=== PATIENT | female | born 1955 | race Caucasian/White ===

== ENCOUNTER 2016-08-17 10:28 | Inpatient (IN) | payer OTHER ==
[2016-08-09 13:58] VITALS: BMI 25.0
--- NOTE | 2016-08-09 14:31 | PAT Medication Instructions ---
Service Date Aug 09, 2016. Current Home Medication List Aspirin (Aspirin Ec), 81 MG PO QAM Ibuprofen Tab (Advil), 600 MG PO Q4H PRN for PRN Lisinopril/Hctz (Zestoretic 20MG/25MG), 1 TAB PO QAM Loratadine (Claritin), 10 MG PO PRN Simvastatin (Zocor), 20 MG PO QPM Tapentadol Hcl (Nucynta), 50 MG PO prn Medication Instructions For Your Scheduled Surgery - Hold the following medications 7 days prior to surgery per surgeon's instructions: Aspirin (Aspirin Ec), 81 MG PO QAM Ibuprofen Tab (Advil), 600 MG PO Q4H PRN for PRN - Hold the following medications the morning of surgery: Lisinopril/Hctz (Zestoretic 20MG/25MG), 1 TAB PO QAM Loratadine (Claritin), 10 MG PO PRN - Take the following medications the morning of surgery with a sip of water OTHERWISE NOTHING TO EAT OR DRINK AFTER MIDNIGHT: Tapentadol Hcl (Nucynta), 50 MG PO prn (may take if needed up to 4 hours prior to surgery) - Take the following medications as scheduled the night before surgery: Tapentadol Hcl (Nucynta), 50 MG PO prn Simvastatin (Zocor), 20 MG PO QPM If you have any questions please call us at [phone] or [phone] or [phone]
--- NOTE | 2016-08-09 15:12 | DIAGNOSTIC IMAGING REPORT ---
CHEST 2 VIEWS ROUTINE HISTORY: 52-year-old female presents for preoperative exam. No reported symptomatology. COMPARISON: Chest CT and lumbar spine CT 09/28/2013. TECHNIQUE: Frontal and lateral views of the chest. FINDINGS: The cardiomediastinal and hilar silhouettes are within normal limits. There is no pneumothorax, pleural effusion, focal airspace consolidation or overt pulmonary edema. Multiple remote lateral left rib fractures and remote left scapular body fracture is seen. Additionally, there is remote compression deformity of the L3 vertebral body. IMPRESSION: 1. No acute cardiopulmonary process. 2. Remote lateral left rib and left scapular body fractures. Electronically signed by: Kurt Arreola 08/09/2016 3:10 PM Dictated Date/Time: 08/09/2016 3:07 PM
[2016-08-09 16:10] LABS: URINE APPEARANCE CLEAR (CLEAR); URINE BILIRUBIN NEG (NEG); URINE COLOR YELLOW; URINE NITRITE NEG (NEG); URINE PH 6.5 (4.5-7.5); URINE SPECIFIC GRAVITY 1.014 (1.000-1.030); UROBILINOGEN NEG (NEG)
[2016-08-09 16:10] LABS: BASO % 0.6 %; BASO ABS # 0.03 K/uL (0-0.2); COMPLETE YES; EOS % 1.7 %; HEMATOCRIT 35.7 % (37-47); IG% 0.2 %; LYMPH % 23.3 %; LYMPH ABS # 1.23 K/uL (1.2-3.4); MEAN CELL VOLUME 90.6 fL (80-100); MEAN CORPUSCULAR HEMOGLOBIN 31.2 pg (25-34); MEAN CORPUSCULAR HGB CONC 34.5 g/dl (32-36); MEAN PLATELET VOLUME 8.7 fL (7.4-10.4); MONO % 11.5 %; NEUT % 62.7 %; PLATELET COUNT 333 K/uL (130-400); RED BLOOD COUNT 3.94 M/uL (4.2-5.4); WHITE BLOOD COUNT 5.29 K/uL (4.8-10.8)
[2016-08-09 16:17] LABS: MANUAL MICROSCOPIC REQUIRED? NO; REVIEW REQ? NO
[2016-08-09 16:26] LABS: BUN/CREATININE RATIO 12.6 (10-20); CALCIUM 9.6 mg/dl (8.5-10.1); CREATININE 1.4 mg/dl (0.60-1.20); POTASSIUM 3.7 mmol/L (3.5-5.1)
[2016-08-17] VITALS (9 sets, daily range): BP systolic 111–134; BP diastolic 69–88; PULSE 70–94; TEMP 35.6–36.5; O2SAT 91–98; Ht 162.6 cm; Wt 67.3 kg
[~2016-08-17] VITALS: Ht 162.6 cm; Wt 67.3 kg
[~2016-08-17 10:28] MED LIST: ASPI81TA28 PO; CEFAZOLIN 2000 MG/60 ML D5W IV SCH; CLR10 PO; CeleBREX 200 MG CAP PO SCH; IBUP-103 PO; LACTATED RINGER'S 1000ML 1,000 ML IV SCH; LISI-788 PO; PREGABALIN 75 MG CAP PO SCH; SIMV20TA2 PO; TAPE50TA5 PO
[2016-08-17] MEDS ORDERED: TRAM-10 PO (11:04)
[2016-08-17] MEDS ORDERED: MIDAZOLAM HCL 1 MG/ML 2ML VIAL ONE (11:29)
[2016-08-17] MEDS ORDERED: FENTANYL CITRATE INJ 50 MCG/1 ML 2 ML VIAL ONE ×3 (11:29→13:04)
[2016-08-17 11:35] LABS: BUN/CREATININE RATIO 11.4 (10-20); CALCIUM 9.4 mg/dl (8.5-10.1); CREATININE 1.3 mg/dl (0.60-1.20); POTASSIUM 3.1 mmol/L (3.5-5.1)
--- NOTE | 2016-08-17 11:40 | History & Physical Bridge Note ---
H&P Re-Evaluation Bridge Note: I have examined the patient, reviewed the History & Physical and in the interval since the performance of the History & Physical I have noted the following changes of clinical significance: No changes noted
[2016-08-17] MEDS ORDERED: THROMBIN FOR SOLN 20000 UNIT KIT ONE (11:47)
[2016-08-17] MEDS ORDERED: HEPARIN SOD (PORCINE) 1000 UNIT/ML 10 ML VIAL ONE (11:47)
[2016-08-17] MEDS ORDERED: THROMBIN 5000 UNITS KIT ONE (11:47)
[2016-08-17] MEDS ORDERED: BACITRACIN 50000 UNIT VIAL ONE (11:47)
[2016-08-17] MEDS ORDERED: BUPIVACAINE/EPINEPHRINE 0.25% 1:200,000 30 ML VIAL ONE (11:48)
[2016-08-17] MEDS ORDERED: LABETALOL HCL IV 5 MG/ML 20ML IV PRN (12:00)
[2016-08-17] MEDS ORDERED: ATROPINE SULFATE 0.1 MG/ML 5ML SYR IV PRN (12:00)
[2016-08-17] MEDS ORDERED: ONDANSETRON INJ 2 MG/ML 2 ML VIAL IV PRN (12:00)
[2016-08-17] MEDS ORDERED: HYDROmorphone INJ 2 MG/ML SYR/VIAL ONE ×2 (12:25→13:16)
[2016-08-17] MEDS ORDERED: ROCURONIUM BROMIDE 10 MG/ML 5 ML VIAL ONE (13:03)
[2016-08-17] MEDS ORDERED: DEXAMETHASONE SOD INJ 4 MG/ML VIAL ONE (13:03)
[2016-08-17] MEDS ORDERED: LIDOCAINE HCL 2% 2 ML VIAL (20MG/ML) ONE (13:03)
[2016-08-17] MEDS ORDERED: ONDANSETRON INJ 2 MG/ML 2 ML VIAL ONE ×2 (13:03→13:17)
[2016-08-17] MEDS ORDERED: PROPOFOL IV EMULSION 10 MG/ML 20 ML VIAL IV ONE (13:03)
--- NOTE | 2016-08-17 13:15 | [facility] Post Operative Brief Note ---
Immediate Operative Summary Operative Date Aug 17, 2016. Pre-Operative Diagnosis lumbar stenosis Post-Operative Diagnosis same Procedure(s) Performed L4-L5 Decompression and Transforaminal Lumbar Interbody Fuison; Arteriorcyte; Application of Bone Morphogenic Protein Surgeon Dr. Alonzo Drop Board Worker Surgeon(s) William Zhang PA-C Estimated Blood Loss 75ml Findings dict Specimens none per surgeon
[2016-08-17] MEDS ORDERED: SODIUM CHLORIDE 0.9% 1000ML 1,000 ML IV SCH (13:17)
[2016-08-17] MEDS ORDERED: NEOSTIGMINE METHYLSULFATE 1 MG/ML 10ML VIAL ONE (13:17)
[2016-08-17] MEDS ORDERED: GLYCOPYRROLATE INJ 0.2 MG/ML VIAL ONE (13:17)
[2016-08-17] MEDS ORDERED: PHENYLEPHRINE 100MCG/ML 5ML SYR ONE (13:17)
--- NOTE | 2016-08-17 13:17 | [facility] Operative Report ---
Operative Report Operative Date Aug 17, 2016. Pre-Operative Diagnosis lumbar stenosis Post-Operative Diagnosis same Procedure(s) Performed 1. L4 laminectomy 2. L4-5 pedicle screw instr bilateral with K2M 3. L4-5 posterolateral fusion with INFUSE, BMA, local bone 4. TLIF L L4-5 5. R iliac crest bone marrow aspiration Surgeon Dr. Alonzo Licensing Director Surgeon(s) William Zhang PA-C Estimated Blood Loss 75ml Findings dict Specimens none per surgeon Anesthesia GETA Complication(s) None Description of Procedure After identification of the patient and the operative level they were brought to the OR where they underwent induction of general anesthesia. They were positioned prone on a Abdoulaye spine table with all bony prominence well-padded. Care was taken to avoid pressure on the periorbital area. The lumbosacral area was sterilely prepped and draped in the usual fashion. Antibiotics were administered, a time-out was performed, level was confirmed, and skin incision was with localized lateral fluoroscopy and a spinal needle. The skin was infiltrated with half percent Marcaine with epinephrine. I then made skin incision from the spinous process of L3-5. The dorsal fascia was incised and posterior exposure was accomplished with dissection out to the tips of the transverse processes from L4-5 bilaterally. I then packed the gutters with thrombin-soaked sponges and used fluoroscopy to confirm the operative levels with markers at the operative levels. After identification of the appropriate level I placed Gelpi retractors and proceeded to perform midline decompression. Laminectomies of L4 were performed in the midline with takedown of the intervening ligamentum flavum. I then used an osteotome to remove the medial facets at L4-5. Facet hypertrophy and degenerative changes were noted at the operative levels. I then completed decompression with Kerrison rongeurs and palpated the nerve roots were adequately decompressed at the operative levels from L4-5 bilaterally. I palpated all nerve roots were decompressed adequately. I then obtained hemostasis of epidural bleeding with bipolar cautery and Surgiflo. I then proceeded to place pedicle screws bilaterally at L4-5 with bony anatomy confirmed to be intact with the ball-tipped feeler. I confirmed screw length, trajectory, and position with fluoroscopy. Following this I turned my attention to the L4-5 disc space and prepared the disc space for subsequent cage introduction with a combination of sherry and curettes. I determined cage size with paddle distractors. I then packed a titanium mesh interbody cage with bone graft mixture. Bone graft consisted of morselized local bone from laminectomy bone as well as bone graft correction lieutenant saturated with stem cell concentrate. I obtained stem cell concentrate using a stem cell concentration system after aspiration of bone marrow from the right iliac crest via a separate stab incisions with a Jamshidi needle. I then applied this to bone graft correction lieutenant. I then inserted the appropriately sized cage into the disc space and confirmed stability. Fluoroscopy confirmed appropriate cage placement. I then lowered the Jah frame to restore lordosis. I applied rods and end caps bilaterally with final tightening of all caps. I irrigated with bacitracin solution. I then decorticated the transverse processes bilaterally at the operative levels from L4-5 as well as facet joints with a high-speed bur. I then packed the lateral gutters and facets with the bone graft mixture consisting of: infuse BMP and a collagen sponge, tricalcium phosphate logs, stem cell concentrate, morcellized local bone, and bone graft correction lieutenant. I then confirmed hemostasis and closed in a layered fashion over a TANVIR drain. All sponge and needle counts were correct in the case. Please note my PA-C participated in all portions of the procedure and was critical for performance of the procedure by assisting in positioning, prepping, draping, suction, retraction, and wound closure. I attest to the content of the Intraoperative Record and any orders documented therein. Any exceptions are noted below.
--- NOTE | 2016-08-17 13:29 | DIAGNOSTIC IMAGING REPORT ---
INTRAOPERATIVE LUMBAR SPINE 2 VIEWS CLINICAL HISTORY: L4-L5 DECOMPRESSION/FUSION/POSSIBLE INTERBODY COMPARISON STUDY: No previous studies for comparison. FINDINGS: 8 seconds of fluoroscopic time was utilized. 2 intraoperative fluoroscopic spot images are provided for interpretation. There are postsurgical changes of an L4-5 discectomy with placement of a metallic disc spacer. There is posterior pedicle screw fixation with L4 and L5 pedicle screws and adjoining spinal rods IMPRESSION: Postsurgical changes the L4-5 level. Electronically signed by: Rodney New M.D. 08/17/2016 1:27 PM Dictated Date/Time: 08/17/2016 1:27 PM
[2016-08-17] MEDS ORDERED: PROMETHAZINE HCL INJ 12.5 MG in SODIUM CHLORIDE 0.9% 50ML 50 ML IV PRN (13:30)
[2016-08-17] MEDS ORDERED: SOD PHOSPHATE/SOD BIPHOSPHATE ENEMA 132 ML BTL PR PRN (13:30)
[2016-08-17] MEDS ORDERED: FAMOTIDINE 20 MG TAB PO PRN (13:30)
[2016-08-17] MEDS ORDERED: LORAZEPAM 0.5 MG TAB PO PRN (13:30)
[2016-08-17] MEDS ORDERED: MAGNESIUM HYDROXIDE SUSP 30 ML UDC PO PRN (13:30)
[2016-08-17] MEDS ORDERED: LORATADINE 10 MG TAB PO SCH (13:30)
[2016-08-17] MEDS ORDERED: LORAZEPAM INJ 0.5 MG in SYRINGE 0.75 ML IV PRN (13:30)
[2016-08-17] MEDS ORDERED: hydrOXYzine HCL 25 MG TAB PO PRN (13:30)
[2016-08-17] MEDS ORDERED: ACETAMINOPHEN IV 100 ML IV PRN (13:30)
[2016-08-17] MEDS ORDERED: NALOXONE HCL 0.4 MG/1 ML VIAL/CARP IV PRN ×2 (13:30)
[2016-08-17] MEDS ORDERED: BISACODYL 10 MG SUPP PR PRN (13:30)
[2016-08-17] MEDS ORDERED: METOCLOPRAMIDE HCL INJ 5 MG/ML 2 ML VIAL IV PRN (13:30)
[2016-08-17] MEDS ORDERED: TAPENTADOL HCL 50 MG TAB PO SCH (13:30)
[2016-08-17] MEDS ORDERED: ACETAMINOPHEN 500 MG TAB PO PRN (13:30)
[2016-08-17] MEDS ORDERED: ALUMINUM/MAGNESIUM SUSP 30 ML UDC PO PRN (13:30)
[2016-08-17] MEDS ORDERED: HYDROmorphone HCL 0.5MG/ML 50 ML CASSETTE ONE (13:38)
[2016-08-17] MEDS: HYDROmorphone INJ 2 MG/ML SYR/VIAL IV PRN ×4 (13:42→14:03)
--- NOTE | 2016-08-17 15:09 | Anesthesiology Progress Note ---
Anesthesia Post Op Note Date & Time Aug 17, 2016 at 15:09 Vital Signs Pain Intensity: 3 Vital Signs Past 12 Hours Date Time Temp Pulse Resp B/P (MAP) Pulse Ox O2 Delivery O2 Flow Rate FiO2 08/17/16 14:31 137/76 08/17/16 14:30 81 14 137/76 100 Nasal Cannula 4 08/17/16 14:28 83 16 08/17/16 14:28 82 16 100 08/17/16 14:23 85 10 100 08/17/16 14:23 84 10 08/17/16 14:21 118/82 08/17/16 14:20 36.0 82 15 118/82 100 Nasal Cannula 4 08/17/16 14:18 80 13 100 08/17/16 14:18 81 13 08/17/16 14:16 123/87 08/17/16 14:13 86 12 08/17/16 14:13 86 12 100 08/17/16 14:12 88 16 08/17/16 14:12 87 16 100 08/17/16 14:11 115/82 08/17/16 14:07 82 17 08/17/16 14:07 82 17 100 08/17/16 14:06 123/87 08/17/16 14:02 86 18 08/17/16 14:02 86 18 100 08/17/16 14:01 113/82 08/17/16 13:57 88 15 100 08/17/16 13:57 88 15 08/17/16 13:56 120/86 08/17/16 13:52 91 18 08/17/16 13:52 90 18 110/99 100 08/17/16 13:47 85 16 100 08/17/16 13:47 85 16 08/17/16 13:46 112/75 08/17/16 13:42 87 23 08/17/16 13:42 86 23 100 08/17/16 13:41 118/81 08/17/16 13:37 84 13 08/17/16 13:37 84 13 100 08/17/16 13:36 123/86 08/17/16 13:32 85 20 100 08/17/16 13:32 85 20 08/17/16 13:31 134/89 08/17/16 13:28 129/88 08/17/16 13:27 36.7 81 16 129/58 100 Mask 10 08/17/16 13:27 84 11 100 08/17/16 13:27 84 11 08/17/16 10:54 36.5 78 18 112/69 (83) 97 Room Air Notes Mental Status: alert / awake / arousable, participated in evaluation Pt Amnestic to Procedure: Yes Nausea / Vomiting: adequately controlled Pain: adequately controlled Airway Patency, RR, SpO2: stable & adequate BP & HR: stable & adequate Hydration State: stable & adequate Anesthetic Complications: no major complications apparent
[2016-08-17] MEDS: HYDROmorphone HCL 0.5MG/ML 50 ML CASSETTE IV PRN ×2 (15:31→19:25)
[2016-08-17] MEDS ORDERED: PNEUMOCOCCAL POLYSACCHARIDES 25 MCG/0.5 ML VIAL/SYR IM. ONE (16:30)
[2016-08-17] MEDS ORDERED: PNEUMOCOCCAL ADMINISTRATION CHARGE ONE (16:30)
[2016-08-17] MEDS: SODIUM CHLORIDE 0.9% 1000ML 1,000 ML IV SCH (18:47)
[2016-08-17] MEDS: DEXAMETHASONE INJ 6 MG in SYRINGE 0 ML IV SCH (18:54)
[2016-08-17] MEDS: ONDANSETRON INJ 2 MG/ML 2 ML VIAL IV PRN (19:34)
[2016-08-17] MEDS: CEFAZOLIN IV 1,000 MG in DEXTROSE 5% 50ML 50 ML IV SCH (20:07)
[2016-08-17] MEDS: DOCUSATE SODIUM/SENNA 50/8.6MG TAB PO SCH (20:08)
[2016-08-17] MEDS: SIMVASTATIN 20 MG TAB PO SCH (20:08)
[2016-08-18] VITALS (7 sets, daily range): BP systolic 102–111; BP diastolic 67–77; PULSE 70–91; TEMP 36.4–36.7; O2SAT 94–98
[2016-08-18] MEDS: ONDANSETRON INJ 2 MG/ML 2 ML VIAL IV PRN (01:21)
[2016-08-18] MEDS: DEXAMETHASONE INJ 6 MG in SYRINGE 0 ML IV SCH ×2 (03:22→10:52)
[2016-08-18] MEDS: CEFAZOLIN IV 1,000 MG in DEXTROSE 5% 50ML 50 ML IV SCH (03:22)
[2016-08-18] MEDS ORDERED: DC PCA SCH (06:00)
[2016-08-18] MEDS: OXYCODONE HCL IR 5 MG TAB (IMMEDIATE RELEASE) PO PRN ×3 (07:18→15:41)
[2016-08-18] MEDS: SODIUM CHLORIDE 0.9% 1000ML 1,000 ML IV SCH ×2 (07:19→15:42)
[2016-08-18 07:48] LABS: COMPLETE YES; IG% 0.1 %; LYMPH % 8.3 %; LYMPH ABS # 0.62 K/uL (1.2-3.4); MEAN CELL VOLUME 91.5 fL (80-100); MEAN CORPUSCULAR HEMOGLOBIN 31.9 pg (25-34); MEAN CORPUSCULAR HGB CONC 34.8 g/dl (32-36); MONO % 5.2 %; NEUT % 86.4 %; PLATELET COUNT 268 K/uL (130-400); RED BLOOD COUNT 3.17 M/uL (4.2-5.4); WHITE BLOOD COUNT 7.51 K/uL (4.8-10.8)
--- NOTE | 2016-08-18 07:53 | Anesthesiology Progress Note ---
Anesthesia Post Op Note Date & Time Aug 18, 2016 at 07:52 Vital Signs Vital Signs Past 12 Hours Date Time Temp Pulse Resp B/P (MAP) Pulse Ox O2 Delivery O2 Flow Rate FiO2 08/18/16 03:12 36.7 91 15 111/77 (88) 98 Nasal Cannula 2.0 08/18/16 00:56 Nasal Cannula 2.0 08/17/16 23:05 36.2 94 16 122/83 (96) 97 Nasal Cannula 2.0 Notes Mental Status: alert / awake / arousable, participated in evaluation Pt Amnestic to Procedure: Yes Nausea / Vomiting: adequately controlled Pain: adequately controlled Airway Patency, RR, SpO2: stable & adequate BP & HR: stable & adequate Hydration State: stable & adequate Anesthetic Complications: no major complications apparent
[2016-08-18 08:17] LABS: BUN/CREATININE RATIO 10.2 (10-20); CALCIUM 8.6 mg/dl (8.5-10.1); CREATININE 1.3 mg/dl (0.60-1.20); POTASSIUM 3.5 mmol/L (3.5-5.1)
--- NOTE | 2016-08-18 09:12 | Orthopedic Progress Note ---
Orthopedic Progress Note Date of Service Aug 18, 2016. Subjective Post OP Day: 1 Reports: feeling well, pain controlled w PO medications, Denies: complaints, chest pain, SOB, nausea / vomiting, light headedness, calf pain, using TECHNICAL ASST Objective calves soft nontender, N/V intact, dressing C/D/I, A&O x3, hemovac drainage Date Time Temp Pulse Resp B/P (MAP) Pulse Ox O2 Delivery O2 Flow Rate FiO2 08/18/16 08:10 95 Room Air 08/18/16 07:58 36.5 70 16 104/67 (79) 95 Room Air 08/18/16 07:20 94 Room Air 08/18/16 03:12 36.7 91 15 111/77 (88) 98 Nasal Cannula 2.0 08/18/16 00:56 Nasal Cannula 2.0 08/17/16 23:05 36.2 94 16 122/83 (96) 97 Nasal Cannula 2.0 08/17/16 19:30 Nasal Cannula 2.0 08/17/16 19:19 35.6 84 18 111/76 (88) 95 Nasal Cannula 2.0 08/17/16 17:45 73 16 123/86 (98) 96 Nasal Cannula 2.0 08/17/16 16:46 36.1 82 16 114/78 (90) 98 2.0 08/17/16 15:45 36.4 75 16 126/85 (99) 97 Nasal Cannula 2.0 08/17/16 15:29 91 Nasal Cannula 2.0 08/17/16 15:21 91 Nasal Cannula 2.0 08/17/16 15:20 36.5 77 16 134/88 (103) 91 Nasal Cannula 2.0 08/17/16 15:15 36.1 70 16 119/83 (95) 97 Nasal Cannula 2.0 08/17/16 14:31 137/76 08/17/16 14:30 81 14 137/76 100 Nasal Cannula 4 08/17/16 14:28 83 16 08/17/16 14:28 82 16 100 08/17/16 14:23 85 10 100 08/17/16 14:23 84 10 08/17/16 14:21 118/82 08/17/16 14:20 36.0 82 15 118/82 100 Nasal Cannula 4 08/17/16 14:18 80 13 100 08/17/16 14:18 81 13 08/17/16 14:16 123/87 08/17/16 14:13 86 12 08/17/16 14:13 86 12 100 08/17/16 14:12 88 16 08/17/16 14:12 87 16 100 08/17/16 14:11 115/82 08/17/16 14:07 82 17 08/17/16 14:07 82 17 100 08/17/16 14:06 123/87 08/17/16 14:02 86 18 08/17/16 14:02 86 18 100 08/17/16 14:01 113/82 08/17/16 13:57 88 15 100 08/17/16 13:57 88 15 08/17/16 13:56 120/86 08/17/16 13:52 91 18 08/17/16 13:52 90 18 110/99 100 08/17/16 13:47 85 16 100 08/17/16 13:47 85 16 08/17/16 13:46 112/75 08/17/16 13:42 87 23 08/17/16 13:42 86 23 100 08/17/16 13:41 118/81 08/17/16 13:37 84 13 08/17/16 13:37 84 13 100 08/17/16 13:36 123/86 08/17/16 13:32 85 20 100 08/17/16 13:32 85 20 08/17/16 13:31 134/89 08/17/16 13:28 129/88 08/17/16 13:27 36.7 81 16 129/58 100 Mask 10 08/17/16 13:27 84 11 100 08/17/16 13:27 84 11 08/17/16 10:54 36.5 78 18 112/69 (83) 97 Room Air Laboratory Results 24 Hours: Test 08/18/16 07:31 White Blood Count 7.51 K/uL Red Blood Count 3.17 M/uL Hemoglobin 10.1 g/dL Hematocrit 29.0 % Mean Corpuscular Volume 91.5 fL Mean Corpuscular Hemoglobin 31.9 pg Mean Corpuscular Hemoglobin Concent 34.8 g/dl Platelet Count 268 K/uL Mean Platelet Volume 8.0 fL Neutrophils (%) (Auto) 86.4 % Lymphocytes (%) (Auto) 8.3 % Monocytes (%) (Auto) 5.2 % Eosinophils (%) (Auto) 0.0 % Basophils (%) (Auto) 0.0 % Neutrophils # (Auto) 6.49 K/uL Lymphocytes # (Auto) 0.62 K/uL Monocytes # (Auto) 0.39 K/uL Eosinophils # (Auto) 0.00 K/uL Basophils # (Auto) 0.00 K/uL Assessment & Plan Assessment: stable, preop pain better Plan: PT, scds, drain, d/c sunday?
[2016-08-18] MEDS: ASPIRIN 81 MG ECTAB PO SCH (09:23)
[2016-08-18] MEDS: LISINOPRIL/HCTZ 20/25MG TAB PO SCH (09:23)
[2016-08-18] MEDS: HYDROmorphone INJ 0.5 MG/0.5 ML SYR IV PRN ×2 (09:54→19:13)
[2016-08-18] MEDS: SIMVASTATIN 20 MG TAB PO SCH (21:58)
[2016-08-18] MEDS: DOCUSATE SODIUM/SENNA 50/8.6MG TAB PO SCH (21:58)
[2016-08-19] MEDS: OXYCODONE HCL IR 5 MG TAB (IMMEDIATE RELEASE) PO PRN ×3 (04:05→11:45)
[2016-08-19] MEDS ORDERED: NURSING VERBAL MED ORDER ONE (05:00)
[2016-08-19] MEDS: POLYETHYLENE (MIRALAX) 17 GM PACK PO SCH ×2 (05:33→11:45)
[2016-08-19 06:19] VITALS: BP 113/73; PULSE 89; TEMP 36.4; O2SAT 99
[2016-08-19 07:35] VITALS: O2SAT 99
[2016-08-19] MEDS: LISINOPRIL/HCTZ 20/25MG TAB PO SCH (08:09)
[2016-08-19] MEDS: ASPIRIN 81 MG ECTAB PO SCH (08:09)
[2016-08-19] MEDS ORDERED: RXC5 PO (11:47)
--- NOTE | 2016-08-19 11:48 | Discharge Instructions ---
Discharge Instructions Date of Service Aug 19, 2016. Admission Reason for Admission: Spinal Stenosis Discharge Discharge Diagnosis / Problem: same Discharge Goals Goal(s): Decrease discomfort Activity Recommendations Activity Limitations: per Instructions/Follow-up section . Instructions / Follow-Up Instructions / Follow-Up ACTIVITY RECOMMENDATIONS: SELF CARE INSTRUCTIONS AFTER THORACIC/LUMBAR FUSIONS 1. You may walk to your tolerance. It is good exercise for your legs and back. Expect some back and intermittent leg aches and pains. 2. You may perform "counter-top" level activities (make a sandwich, josep with a project, etc.). 3. No bending or lifting of more than 10 pounds or back twisting of any nature (roll like a log when turning in bed). 4. You may ride in a car for 20-30 minutes at a time. No driving until after your first visit with your doctor. 5. Frequent changes of position and restricting sitting to 30 minutes at a time will help limit the amount of back spasms and stiffness you may experience. 6. You may discontinue the use of ambulatory aids (cane, crutches, etc.) once your strength and confidence allow. 7. You may it network administrator the shower and let water strike your incision when you arrive home at least once daily. Do not take a tub bath, sit in a hot tub or go into a swimming pool until after your first recheck in the office. SPECIAL CARE INSTRUCTIONS: VERY IMPORTANT TO READ AND REVIEW 2. You may keep the wound open to air as much as possible to promote healing after post-op day number 5 unless told otherwise by your doctor. 3. If you think the wound looks like it is becoming infected (redness or worsening drainage) and/or you are experiencing fever, chill or worsening back pain and muscle spasms, contact the office so that we may evaluate you as soon as possible. B. Complications are uncommon, but please contact us if you have any signs or symptoms of: 1. wound infection (fever higher than 102.5 degrees F, redness, separation of wound, drainage, or increasing pain from the incision) 2. blood clots in legs (pain, swelling, redness and warmth in legs) 3. urinary tract infection (fever higher than 102.5 degrees F, burning upon urination or increased frequency of urination) 4. nerve problems (inability to walk on your toes or heels, numbness, loss of bowel or bladder control) 5. any other symptoms that concern you C. Please call the office at if you have any concerns or questions about your operation or recovery. D. No smoking! Smoking drastically decreases the chance of a solid fusion. MANAGING PAIN AFTER SPINAL SURGERY 1. Narcotic medication is intended for short-term use and will be provided for surgical pain. Surgical pain usually lasts for a period of 4-6 weeks. Narcotic medication includes Percocet, Vicodin, Darvocet, Tylenol #3 or Lortab. 2. Longer-term pain is more appropriately treated with non-narcotic medication such as Tylenol ES. 3. Muscle spasm is not appropriately treated with narcotics. Muscle relaxers such as Soma, Flexeril or Skelaxin can be used along with Tylenol ES. 4. Remember that we all live with some "aches and pains". This is not unusual or uncommon after an injury or as we get older. a. Back pain is expected and may include muscle spasms for 4 to 6 weeks after surgery. The pain should gradually improve. If the pain worsens for no apparent reason, please contact the office. b. Intermittent leg pain may also be experienced and should not be concerned about unless it worsens for no apparent reason. If so, please contact the office. 5. We will provide appropriate medication within the normal guidelines of their prescribed use. We will also be very cautious and aware of potential abuse and extended duration of patients' medication needs. a. Pain medications are for your comfort and to assist with sleep and rest so that the tissue can heal. They are not provided in order to return to normal activity and should not be used through the day. To do so or worsening pain at night can result from ongoing tissue damage and development of tolerance to the prescribed medicine. 6. Please allow 2-3 days to process refills. Prescriptions will not be mailed but must be picked up at the office. FOLLOW UP VISIT: Keep your scheduled follow-up appointment. Any questions, please call the office at . Current Hospital Diet Patient's current hospital diet: Regular Diet Discharge Diet Recommended Diet: Regular Diet Procedures Procedures Performed: 1. L4 laminectomy 2. L4-5 pedicle screw instr bilateral with K2M 3. L4-5 posterolateral fusion with INFUSE, BMA, local bone 4. TLIF L L4-5 5. R iliac crest bone marrow aspiration Pending Studies Studies pending at discharge: no Medical Emergencies . Who to Call and When: Medical Emergencies: If at any time you feel your situation is an emergency, please call 911 immediately. . Non-Emergent Contact Non-Emergency issues call your: Surgeon . "Provider Documentation" section prepared by Moose Alonzo. . VTE Core Measure Inpt VTE Proph given/why not?: SCD's [place] Drug Monitoring Program Search Results: patient reviewed within database, no issues identified ( reviewd by DENIS)
--- NOTE | 2016-08-19 11:51 | Discharge Summary ---
Orthopedic Discharge Summary Admission Date/Reason Aug 17, 2016 at 11:15 Spinal Stenosis. Discharge Date/Disposition Aug 19, 2016 Home Diagnosis Principal Diagnosis: same Procedure(s) Performed lumbar fusion Medication Reconciliation New Medications: Oxycodone HCl (Oxycodone HCl) 5 Mg Tab 5-10 MG PO Q4H PRN for Moderate - severe pain, #90 TAB Continued Medications: Aspirin (Aspirin Ec) 81 Mg Tab 81 MG PO QAM Ibuprofen Tab (Advil) 200 Mg Tab 600 MG PO Q4H PRN for PRN, TAB Lisinopril/Hctz (Zestoretic 20MG/25MG) Tab 1 TAB PO QAM, TAB Loratadine (Claritin) 10 Mg Tab 10 MG PO PRN, TAB Simvastatin (Zocor) 20 Mg Tab 20 MG PO QPM, TAB Discontinued Medications: Tapentadol Hcl (Nucynta) 50 Mg Tab 50 MG PO prn, TAB Tramadol (Ultram) 50 Mg Tab 50 MG PO Q8H PRN for Pain, TAB Admission Physical Exam As per Admitting History & Physical. Hospital Course The patient was admitted for elective lumbar fusion. They tolerated procedure well and were stable on the floor. They progressed with PT, had stable labs, HVC output decreased, pain was controlled, and bowel function returned. They were discharged in stable condition Discharge Instructions Please refer to the electronic Patient Visit Report (Discharge Instructions) for additional information.
[2016-08-19 12:31] VITALS: BP 113/73; PULSE 89; TEMP 36.4; O2SAT 99
== END 2016-08-19 13:10 | disposition home or self-care (01) | DRG 460 ==
LOC: C.ACU 10:28 → C.MSN 11:15 → ENRESERV 14:14
PROVIDERS: ADMIT Orthopaedic Surgery Orthopaedic Surgery of the Spine; ATTEND Orthopaedic Surgery Orthopaedic Surgery of the Spine
PROC: 3E0U0GB Introduction of Recombinant Bone Morphogenetic Protein into Joints, Open Approach (ICD-10-PCS; principal; 2016-08-17 12:00)
PROC: 0SG00AJ Fusion of Lumbar Vertebral Joint with Interbody Fusion Device, Posterior Approach, Anterior Column, Open Approach (ICD-10-PCS; principal; 2016-08-17 12:00)
DX: M48.06 Spinal stenosis, lumbar region (principal); I10 Essential (primary) hypertension; Z86.73 Personal history of transient ischemic attack (TIA), and cerebral infarction without residual deficits; Z87.891 Personal history of nicotine dependence

== ENCOUNTER → 2017-01-24 | Outpatient (CLI) | payer OTHER ==
[~2017-01-24] MED LIST changes: -CEFAZOLIN 2000 MG/60 ML D5W IV SCH; -CeleBREX 200 MG CAP PO SCH; +GADAVIST IV PRN; -LACTATED RINGER'S 1000ML 1,000 ML IV SCH; -PREGABALIN 75 MG CAP PO SCH; +RXC5 PO; -TAPE50TA5 PO
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
== END | disposition home or self-care (01) ==
LOC: C.MRIBC 07:51
PROVIDERS: ATTEND Orthopaedic Surgery Orthopaedic Surgery of the Spine
DX: Z98.1 Arthrodesis status (principal)

== ENCOUNTER → 2017-09-28 | Outpatient (CLI) | payer OTHER ==
[~2017-09-28] MED LIST changes: +ACET-1256 PO; -CLR10 PO; +GABA-113 PO; -GADAVIST IV PRN; -IBUP-103 PO; +LISI40TA3 PO; +LORA10TA6 PO; +MELO7.5T5 PO; +METF750T PO; +PRLSR20 PO; -RXC5 PO
--- NOTE | 2017-09-28 10:49 | DIAGNOSTIC IMAGING REPORT ---
CHEST 2 VIEWS ROUTINE CLINICAL HISTORY: 61 years-old Female presenting with preoperative assessment. TECHNIQUE: PA and lateral views of the chest were obtained. COMPARISON: 08/09/2016. FINDINGS: Cardiac silhouette top normal in size. Lungs and pleural spaces clear. Old fracture deformities of left ribs. Partially visualized lumbar fusion hardware suspected. Upper abdomen normal. IMPRESSION: 1. No acute cardiopulmonary disease. Electronically signed by: Sandro Aguilar M.D. 09/28/2017 10:48 AM Dictated Date/Time: 09/28/2017 10:47 AM
[2017-09-28 11:07] LABS: BASO % 1.1 %; BASO ABS # 0.05 K/uL (0-0.2); EOS % 6.4 %; EOS ABS # 0.28 K/uL (0-0.5); HEMATOCRIT 34.6 % (37-47); HEMOGLOBIN 11.9 g/dL (12.0-16.0); IG# 0.01 K/uL (0.00-0.02); LYMPH ABS # 1.35 K/uL (1.2-3.4); MEAN CELL VOLUME 92.5 fL (80-100); MEAN CORPUSCULAR HEMOGLOBIN 31.8 pg (25-34); MEAN CORPUSCULAR HGB CONC 34.4 g/dl (32-36); MEAN PLATELET VOLUME 8.9 fL (7.4-10.4); MONO % 9.4 %; MONO ABS # 0.41 K/uL (0.11-0.59); NEUT % 51.9 %; NEUT ABS # 2.25 K/uL (1.4-6.5); PLATELET COUNT 308 K/uL (130-400); RED CELL DISTRIBUTION WIDTH CV 12.2 % (11.5-14.5); RED CELL DISTRIBUTION WIDTH SD 41.6 fL (36.4-46.3); WHITE BLOOD COUNT 4.35 K/uL (4.8-10.8)
[2017-09-28 11:15] LABS: ALBUMIN 3.6 gm/dl (3.4-5.0); BLOOD UREA NITROGEN 15 mg/dl (7-18); CALCIUM 9.1 mg/dl (8.5-10.1); CARBON DIOXIDE 28 mmol/L (21-32); CREATININE 1.13 mg/dl (0.60-1.20); GLUCOSE 176 mg/dl (70-99); POTASSIUM 3.7 mmol/L (3.5-5.1); SODIUM 128 mmol/L (136-145)
[2017-09-28 11:20] LABS: INR 0.9 (0.9-1.1); PTT PATIENT 28.8 SECONDS (21.0-31.0)
[2017-09-28 11:29] LABS: ALBUMIN 3.4 gm/dl (3.4-5.0); TOTAL PROTEIN 7.2 gm/dl (6.4-8.2)
[2017-09-28 11:33] LABS: HEMOGLOBIN A1C 7.5 % (4.5-5.6)
== END | disposition home or self-care (01) ==
LOC: C.CPL 09:50
DX: Z01.818 Encounter for other preprocedural examination (principal)

== ENCOUNTER 2024-04-04 06:08 | Inpatient (IN) ==
--- NOTE | 2024-03-03 09:45 | PAT Medication Instructions ---
Medication Instructions Date of Service March 03, 2024 Home Medications aspirin 81 mg tablet,delayed release 81 mg PO QAM lisinopril 40 mg tablet 40 mg PO QPM loratadine 10 mg tablet (Claritin) 10 mg PO DAILY PRN allergies simvastatin 40 mg tablet 40 mg PO QPM amlodipine 5 mg tablet 5 mg PO QAM cholecalciferol (vitamin D3) 10 mcg (400 unit) chewable tablet (Vitamin D3) 20 mcg PO QAM gabapentin 300 mg capsule 300 - 600 mg PO TID PRN Pain hydrochlorothiazide 12.5 mg capsule 12.5 mg PO QAM metformin 500 mg tablet,extended release 24 hr 1,000 mg PO QPM ASK your prescriber and surgeon aspirin 81 mg tablet,delayed release 81 mg PO QAM DO NOT take the morning of surgery loratadine 10 mg tablet (Claritin) 10 mg PO DAILY PRN allergies cholecalciferol (vitamin D3) 10 mcg (400 unit) chewable tablet (Vitamin D3) 20 mcg PO QAM hydrochlorothiazide 12.5 mg capsule 12.5 mg PO QAM Take evening before surgery lisinopril 40 mg tablet 40 mg PO QPM loratadine 10 mg tablet (Claritin) 10 mg PO DAILY PRN allergies (if needed) simvastatin 40 mg tablet 40 mg PO QPM gabapentin 300 mg capsule 300 - 600 mg PO TID PRN Pain (if needed) metformin 500 mg tablet,extended release 24 hr 1,000 mg PO QPM MORNING OF SURGERY: NOTHING TO EAT OR DRINK AFTER MIDNIGHT Other Notes If you have any questions please call us at [phone] or [phone] or [phone] or [phone]
--- NOTE | 2024-03-03 09:55 | Anesthesiology Consultation ---
Date of Service March 03, 2024 Assessment & Plan (1) Encounter for pre-operative examination: - Check BSG DOS - Infectious disease screening: Per assessment on 03/03/24- No known recent infectious disease contacts or current infectious disease symptoms. - Patient acceptable risk for surgery pending surgeon-ordered PCP preop evaluation (Noted on surgeon preop orders, patient unaware of needing this at PAT visit- patient states she will contact surgeon/PSH PCP to coordinate). Chart Review Chart Review: Patient seen in Pre Admission Testing Teaching & Discussion Pre-Anesthesia Teaching/Discussion Notes: Instructed NPO after midnight before surgery,except medications with 15 cc of water. Medication instructions provided according to the [facility] guidelines. History Surgery Operation Date: 04/04/24 09:35 Proposed Procedures p L4-L5 Removal Hardware, L3-L4 Decompression and Fusion, Spinal Cord Monitoring - Lonnie Young DO Height/Weight Height: 5 ft 3 in Weight: 72.3 kg Allergies Allergy/AdvReac Type Severity Reaction Status Date / Time adhesive AdvReac Mild Skin Verified 03/03/24 09:45 irritation, "skin rips off" with some tape tramadol AdvReac Mild Nausea Verified 03/03/24 09:45 prednisone AdvReac Unknown "Family Verified 03/03/24 09:45 allergic" (patient unsure if allergic) Medications Home Medications Medication Instructions Recorded Confirmed Last Taken aspirin 81 mg tablet,delayed 81 mg PO QAM 02/03/23 02/20/24 Unknown release lisinopril 40 mg tablet 40 mg PO QPM 02/03/23 02/20/24 Unknown loratadine 10 mg tablet (Claritin) 10 mg PO DAILY PRN allergies 02/03/23 02/20/24 Unknown simvastatin 40 mg tablet 40 mg PO QPM 02/03/23 02/20/24 Unknown amlodipine 5 mg tablet 5 mg PO QAM 02/20/24 02/20/24 Unknown cholecalciferol (vitamin D3) 10 20 mcg PO QAM 02/20/24 02/20/24 Unknown mcg (400 unit) chewable tablet (Vitamin D3) gabapentin 300 mg capsule 300 - 600 mg PO TID PRN Pain 02/20/24 02/20/24 Unknown hydrochlorothiazide 12.5 mg capsule 12.5 mg PO QAM 02/20/24 02/20/24 Unknown metformin 500 mg tablet,extended 1,000 mg PO QPM 02/20/24 02/20/24 Unknown release 24 hr Past Medical History Medical History Arthritis Degenerative disc disease Diabetes mellitus, type 2 Hx of basal cell carcinoma Hx TIA/stroke w/o resid x2 events (10+ years ago) Hyperlipidemia Hypertension Kidney anomaly, congenital Right sided kidney "overgrowth" Exercise / Class Metabolic Activity II 4-5 Yardwork/Stairs/Walk up hill (one FS: No CP, no SOB) Past Family History Family History Other No family history of adverse response to anesthesia Past Surgical History Surgical History H/O unilateral oophorectomy benign tumor removed H/O wrist surgery left History of section x2 History of colonoscopy History of lumbar fusion L4-5 (2014) History of tooth extraction History of total hip arthroplasty right Past Anesthesia History No Hx of Anesthesia Complications and No Family Hx of Anesthesia Complications History of PONV No Hx of PONV and No Hx of Motion Sickness Social History Smoking Status: Former smoker Do You Dip or Chew Tobacco: No Smoking End Date: Quit 2017 Hx Alcohol Use: Yes Alcohol type: hard liquor alcohol intake frequency: 3 or more drinks per day (2-3 rum and diet pepsi drinks daily) substance use type: does not use Review of Systems Patient denies chest pain, shortness of breath, dyspnea on exertion, fever, chills, cough, wheezing, palpitations. Physical Exam Vital Signs BP 116/77 P 76 TEMP 98.0 SP02 98%RA RESP 18 Physical Full cervical extension range of motion. Full TMJ range of motion. TMD > 3.5 finger breaths Mallampati Score III Dentition: upper/lower full plates that attached to implants Lungs: clear throughout to auscultation Cardiac: regular rate and rhythm, no murmurs noted Spine: normal Carotid arteries: negative bruit Extremities: no LE edema Lab Results Anesthesia Preop Results Results Anesthesia Widget: WBC 4.92 K/ul (4.8-10.8) 03/03/24 Hgb 12.6 g/dl (12.0-16.0) 03/03/24 Hct 36.8 % (37.0-47.0) L 03/03/24 Plt 230 K/uL (130-400) 03/03/24 Na 136 mmol/L (136-145) 03/03/24 K 4.0 mmol/L (3.5-5.1) 03/03/24 Cl 96 mmol/L (98-107) L 03/03/24 CO2 32 mmol/L (21-32) 03/03/24 BUN 11 mg/dl (6-23) 03/03/24 Creat 1.04 mg/dl (0.6-1.2) 03/03/24 Glucose Level 182 mg/dl (70-99(Fasting)) H 03/03/24 PT 10.0 Seconds (9.0-12.0) 03/03/24 PTT 27 Seconds (21-31) 03/03/24 INR 0.9 (0.9-1.1) 03/03/24 HA1c 7.6 % (4.5-5.6) H 03/03/24 Urine Color Yellow 03/03/24 Urine Appearance Clear (Clear) 03/03/24 Urine pH 6.0 (4.5-7.5) 03/03/24 Urine Specific [place] 1.015 (1.000-1.030) 03/03/24 Urine Protein Negative (Negative) 03/03/24 Urine Glucose (UA) Negative (Negative) 03/03/24 Urine Ketones Negative (Negative) 03/03/24 Urine Blood Negative (Negative) 03/03/24 Urine Nitrite Negative (Negative) 03/03/24 Urine Bilirubin Negative (Negative) 03/03/24 Urine Urobilinogen Negative (Negative) 03/03/24 Urine Leukocyte Esterase Negative (Negative) 03/03/24 Blood Type A Positive 03/03/24 Antibody Screen NEGATIVE 03/03/24 Testing Electrocardiogram Date: 03/03/24 NSR at 74bpm. "Normal ECG" Chest X-Ray Date: 03/03/24 FINDINGS: Heart size and pulmonary vasculature are normal. No effusion or consolidation. IMPRESSION: No acute findings.
--- OUTSIDE RECORDS SUMMARY | 2024-04-04 06:16 | External Medical Summary | Summary of Care ---
Author Name Unknown Organization [facility] Address [address] [facility] [place] [address] Phone [phone] Care Team Providers Care Cement Car Dumper Name Role Phone Baylee Miles PA-C Primary Care Provider [phone] Encounter Details Date Type Department Care Team (Late st Contact Info) Description 03/11/2024 Orders Only Family Practice [facility] [address] [facility] [place] [address] Baylee Miles PA-C [address] [facility] [place] [id number] Allergies Active Allergy Reactions Criticality Noted Date Comments Adhesive Tape 02/03/2023 Other Reaction(s): SKIN IRRITATION RIPS SKIN OFF WITH SOME TAPE Pollen Other (Please comment) 09/08/2013 Sneezing, runny nose, watery eyes Ragweed Other (Please comment) 09/08/2013 Sneezing, runny nose, watery eyes Tramadol Low 02/03/2023 Other Reaction(s): nausea documented as of this encounter (statuses as of 03/11/2024) Medications Aspirin 81 MG Tablet Take 1 Tablet by mouth in the morning. Active Vitamin D3 10 MCG (400 UNIT) Oral Tablet Take 1 Tablet by mouth in the morning. Active Simvastatin 40 MG Oral Tablet (Zocor)Indications:Pure hypercholesterolemia Take 1 Tablet by mouth every evening. 90 Tablet 3 04/18/19 24 Active hydroCHLOROthiazide 12.5 MG Oral CapsuleIndications:HTN, goal below 140/90 TAKE 1 CAPSULE BY MOUTH EVERY MORNING 90 Capsule 2 06/22/19 24 Active Gabapentin 300 MG Oral Capsule (Neurontin) Take 1 Capsule by mouth in the morning and 1 Capsule at noon and 1 Capsule in the evening and 1 Capsule before bedtime. 120 Capsule 5 10/22/19 24 Active metFORMIN HCl ER 500 MG Oral Tablet Extended Release 24 Hour (Glucophage XR) Take 2 Tablets by mouth daily with dinner. 180 Tablet 1 12/20/19 24 Active amLODIPine Besylate 5 MG Oral Tablet (Norvasc) TAKE 1 TABLET BY MOUTH EVERY DAY IN THE MORNING 90 Tablet 3 01/07/20 24 Active Lisinopril 40 MG Oral TabletIndications:HTN, goal below 140/90 TAKE 1 TABLET BY MOUTH EVERY DAY 90 Tablet 1 02/14/19 25 Active documented as of this encounter (statuses as of 03/11/2024) Active Problems Problem Noted Date Diagnosed Date HTN, goal below 140/90 02/14/2023 Senile osteoporosis 10/20/2020 Type 2 diabetes mellitus wit h hemoglobin A1c goal of less than 7.0% 06/01/2017 Pure hypercholesterolemia 05/09/2017 Lumbar radiculopathy 11/14/2016 Cephalalgia 03/19/2015 Generalized osteoarthritis 05/03/2010 Malignant neoplasm of skin of parts of face 10/07 Overview (04/29/2015): ICD-10 update of inactive term documented as of this encounter (statuses as of 03/11/2024) Resolved Problems Problem Noted Date Diagnosed Date Resolved Date Migraine with aura and witho ut status migrainosus, not intractable 2018 02/14/2023 Kidney disease, chronic, sta ge III (GFR 30-59 ml/min) 05/15/2017 09/28/2017 Overview: Per CKD protocol #1 Stroke, acute, within 8 weeks 03/19/2015 11/14/2016 Hereditary hemochromatosis 01/15/2015 1 03/18/2014 Iron overload 01/15/2015 02/14/2023 Alcohol ingestion, more than 4 drinks/day on alcohol screening 05/31/2010 11/14/2016 Intractable migraine 04/17/2006 019 ADVANCE DIRECTIVE INFORMATION 10/31/2005 2023 Overview (10/31/2005): Pt given handout Malignant neoplasm of skin of parts of face 11/14/2016 Overview (04/29/2015): basal cell ICD-10 update of inactive term documented as of this encounter (statuses as of 03/11/2024) Immunizations Name Administration Dates Next Due COVID-19 mRNA, LNP-s, No Pre serve, 2-Dose Series ([employer]) 12/14/2020,04/29/2020,04/01/2020 Covid-19, Mrna, Lnp-s, Pf, B ivalent, 30 Mcg, IM, 12 yrs and above ([employer]) 01/10/2022 Pneumococcal Conjugate Vacci ne, 20-valent ([id number]) 10/22/2023 Pneumococcal Polysaccharide PPV23 (Pneumovax) 08/18/2016 Seasonal Influenza Vac., MDV , IM, 0.5 mL (Fluzone) 10/13/2013 Seasonal Influenza, High Dos e, Trivalent, PF, IM (Fluzone HD) 10/22/2023 Seasonal Influenza, PF, 6 M & above, IM , (FluLaval or Fluzone) 10/25/2022,10/26/2021,11/09/2020,10/19,10/28/2018,11/13/2017,11/08/2016 Seasonal Influenza, Quadrivalent, ID 10/13/2013 Seasonal Influenza, Quadriva lent, No Preserve, IM 11/10/2015,12/07/2014 TDAP (age 10 and older)(Boostrix) 09/28/2013 Varicella Zoster Vaccine (Adult) 02/18/2016 Zoster Vaccine Recombinant (Shingrix) 03/06/2019 ,12/04/2018 documented as of this encounter Social History Tobacco Use Types Packs/Day Years Used Date Smoking Tobacco: Former Cigarettes Q uit: 02/2015 Smokeless Tobacco: Never Alcohol Use Standard Drinks/Week Comments Yes 0 (1 standard drink = 0.6 oz pur e alcohol) 3-4 drinks in evenings PHQ-2 Answer Date Recorded PHQ Adult Total Score 0 01/09/2024 Hunger Vital Sign Answer Date Recorded Within the past 12 months, y ou worried that your food would run out before you got the money to buy more. Never true Within the past 12 months, t he food you bought just didn't last and you didn't have money to get more. Patient declined 05/2023 Childcare Answer Date Recorded Do you feel overwhelmed with taking care of a child, family member or friend? No 01/09/2024 Does your family need help f inding childcare? (Household - for ages 0-17 years) Not on file 01/09/2024 Clothing Answer Date Recorded Have you been unable to get clothing when it was really needed? No 01/09/2024 Is your family able to get c lothes or diapers when needed? (Household - for ages 0-17 years) Not on file 01/09/2024 Personal Safety Answer Date Recorded Do you feel unsafe or have concerns for your saf ety? No 01/09/2024 Do you have concerns for you r family's safety? (Household - for ages 0-17 years) Not on file 01/09/2024 Utilities Answer Date Recorded Do you have trouble paying y our heating, water, or electric bill? No 01/09/2024 Is your family able to pay t he heat, water, or electric bill? (Household - for ages 0-17 years) Not on file 01/09/2024 Does your family have access to good internet? (Household - for ages 0-17 years) Not on file 01/09/2024 Employment Status Answer Date Recorded Are you unemployed or without regular income? No 01/09/2024 Does the household have a [facility] source of income? (Household - for ages 0-17 years) Not on file 01/09/2024 Social Connections Answer Date Recorded How often do you feel lonely or isolated from th ose around you? Never 01/09/2024 Financial Resource Strain Answer Date R ecorded Do you have any trouble payi ng for your medications, or do you think you might in the future? No 01/09/2024 Does your family have troubl e paying for medicine? (Household - for ages 0-17 years) Not on file 01/09/2024 Transportation Needs Answer Date Record ed Do you have trouble getting a ride to medical visits or work? (Adult - for ages 18 years and over) Not on file 01/09/2024 Does your family have a hard time getting a ride to doctors visits? (Household - for ages 0-17 years) Not on file 01/09/2024 Has lack of transportation k ept you from medical appointments, meetings, work, or from getting things needed for daily living? Check all that apply. No 01/09/2024 Do you (or your family) have trouble finding or paying for a ride (transportation)? (Household - for ages 0-17 years) Not on file 01/09/2024 Housing Stability Answer Date Recorded Do you currently live in a s helter or have no steady place to sleep at night? No 01/09/2024 Do you think you are at risk of becoming homeless? (Adult - for ages 18 years and over) Not on file 01/09/2024 Does your family worry about paying for your home or becoming homeless? (Household - for ages 0-17 years) Not on file 1 03/11/2023 Are you homeless or worried that you might be in the future? No 01/09/2024 Are you (or your family) rita eless or worried that you might be in the future? (Household - for ages 0-17 years) Not on file Food Insecurity Answer Date Recorded Do you need food for this week? No 01/09/2024 Are you able to get enough f ood for your family? (Household - for ages 0-17 years) Not on file 01/09/2024 Does your family need food t his week? (Household - for ages 0-17 years) Not on file 01/09/2024 Do you always have enough fo od for your family? (Household - for ages 0-17 years) Not on file 01/09/2024 Comments No Sex and Gender Information Value Date Recorded Sex Assigned at Female 10/17/2021 9:16 PM EDT Legal Sex Female 5:58 AM EST Gender Identity Female 10/17/2021 9:16 PM EDT Sexual Orientation Straight 10/17/2021 9: 16 PM EDT documented as of this encounter Plan of Treatment Upcoming Encounters Date Type Department Care Team (Late st Contact Info) Description 04/01/2024 2:00 PM EST Office Visit Family Practice [facility] [place] [address] [place] [address] Baylee Miles PA-C [address] [facility] [place] [facility] [place] [address] 04/10/2024 11:00 AM EST Office Visit Family Practice [facility] [place] [address] [place] [address] Baylee Miles PA-C [address] [facility] [place] [facility] [place] [address] 05/16/2024 12:40 PM EDT Office Visit Optometry, [place] [address] [place] [address] Reginaldo Duke, TANA [address] [place] [address] 06/23/2024 1:00 PM EDT Imaging Radiology [facility] [address] [place] [id number] 07/31/2024 10:30 AM EDT Office Visit Rheumatology [facility] [address] [place] [phone] Moy Dee PA-C [address] [place] [address] [place] [address] 03/05/2025 2:00 PM EST Nurse Only Ancillary [facility] [place] [address] [facility] [place] [address] [place], Nurse Annual Wellness [address] [facility] [place] [address] Scheduled Procedures Name Priority Associated Diagnoses Date/Ti me COLONOSCOPY FLEXIBLE PROXIMA L DIAGNOSTIC Recall History of colonic polyps Health Maintenance Due Date Last Done Comments Mammogram 1997 Sigmoidoscopy 2002 Fecal Occult Blood Test 09/15/2014 09/15/2013 Cologuard 05/10/2020 05/10/2017 DTap/Tdap Vaccines (2 - Td or Tdap) 09/29/2023 09/28/2013 COVID-19 Vaccine ( season) 2023 01/10/2022, 12/14/2020, 04/29/2020, Additional history exists Albumin/Creatinine Ratio 02/15/2024 024, 04/04/2022, 05/05/2021, Additional history exists B-12 02/15/2024 02/14/2023, 03/09, 05/05/2021, Additional history exists Diabetic Foot Exam 02/29/2024 02/28/2023, 1 , 12/04/2018, Additional history exists Diabetic Eye Exam 04/18/2024 04/19/2023, , 04/19/2023, Additional history exists HbA1c 06/17/2024 12/19/2023, 02/05, 04/04/2022, Additional history exists DXA Scan 06/21/2024 06/21/2022, 06/08/2020 GFR 07/24/2024 03/03/2024, 07/06, 02/14/2023, Additional history exists Adult Wellness Visit 01/08/2025 01/09/2024 Depression Screening 01/08/2025 01/09/2024 Colonoscopy 07/29/2027 07/28/2022, 07/07, 06/13/2017, Additional history exists Colorectal Cancer Screening 07/29/2027 Lipid Panel 02/15/2028 02/14/2023, 08/06, 05/12/2020, Additional history exists Cervical Cancer Screening Discontinued Pap Smear Discontinued 09/08/2013 (Refused) Zoster Vaccines Completed 03/06/2019, 11/07, 02/18/2016 RETIRED - COLONOSCOPY-EVERY 5 YRS AGES 18-100 Discontinued 07/28/2022, 07/28/2022, 06/13/2017, Additional history exists VITAMIN D LEVEL ONCE IN A LIFETIME-USE SMARTSET# [id number] Completed 02/14/2023, 06/21/2022, 10/26/2021, Additional history exists Influenza Vaccine (FLU shot) Completed 10/22/2023, 10/25/2022, 10/26/2021, Additional history exists Pneumococcal Vaccine: 50+ Years Completed 10/22/2023, 08/18/2016 HPV (Gardasil) Vaccine Aged Out No lo nger eligible based on patient's age to complete this topic HPV/Co-Test Discontinued Hepatitis B Vaccine Aged Out No longe r eligible based on patient's age to complete this topic MENINGOCOCCAL (MENACTRA/MENVEO) Aged Out No longer eligible based on patient's age to complete this topic documented as of this encounter Medical Devices Implanted Type Area Outside Parts Sales Device Identifier Shelf Expiration Date Model / Serial / Lot Plate Vol Lcp 2.4mm 02111.621 - [id number] Implanted:Qty: 1 on 10/09/2013 at OR [facility] Left: Wrist SYNTHES 111.621 / / [id number] Screw Sami 2.4x12 201.762 - [id number] Implanted:Qty: 1 on 10/09/2013 at OR [facility] Left: Wrist SYNTHES 201.762 / / Scrw Lkg 2.4mm Va 22mm - [id number] Implanted:Qty: 1 on 10/09/2013 at OR [facility] Left: Wrist SYNTHES 02.210.122 / / Scrw Lkg 2.4mm Va 20mm - [id number] Implanted:Qty: 3 on 10/09/2013 at OR [facility] Left: Wrist SYNTHES 02.210.120 / / Scrw Lkg 2.4mm Va 18mm - [id number] Implanted:Qty: 1 on 10/09/2013 at OR [facility] Left: Wrist SYNTHES 02.210.118 / / Scrw Lkg 2.4mm Va 16mm - [id number] Implanted:Qty: 1 on 10/09/2013 at OR [facility] Left: Wrist SYNTHES 02.210.116 / / Screw Locking 2.4x12mm 212.812 - [id number] Implanted:Qty: 1 on 10/09/2013 at OR [facility] Left: Wrist SYNTHES 212.812 / / documented as of this encounter Procedures Procedure Name Priority Date/Time Associated Diagnosis Comments CHEMISTRY-OUTSIDE Routine 03/03/2024 documented in this encounter Results * (ABNORMAL) CHEMISTRY-OUTSIDE (03/03/2024) Not all results display below - see scan for full detail OUTSIDE LAB (SEE SCANNED REPORT) Comment:PRE-OP LABS- CBCD, P T INR, PTT, PTTR, BMP UA CREATININE 1.04 0.6 - 1.2 MG/DL OUTSIDE LAB (SEE SCANNED REPORT) EGFR 59.28 OUTSIDE LA B (SEE SCANNED REPORT) POTASSIUM 4.0 3.5 - 5.1 MMOL/L OUTSIDE LAB (SEE SCANNED REPORT) GLUCOSE 182(A) 70 - 99 MG/DL OUTSIDE LAB (SEE SCANNED REPORT) HOURS FASTING OUTSID E LAB (SEE SCANNED REPORT) TRIGLYCERIDES-OUT SIDE LAB OUTSIDE LAB (SEE SCANNED REPORT) CHOLESTEROL-OUTSI DE LAB OUTSIDE LAB (SEE SCANNED REPORT) HDL-OUTSIDE LAB OUTS [facility] (SEE SCANNED REPORT) CHOL/HDL RATIO-OUTSIDE LAB OUTSIDE LA B (SEE SCANNED REPORT) LDL (CALCULATED)-OUTS [facility] OUTSIDE LAB (SEE SCANNED REPORT) LDL (DIRECT MEASURE)-OUTSIDE LAB OUTSIDE LAB (SEE SCANNED REPORT) HEMOGLOBIN, [id number] LAB OUTSIDE LAB (SEE SCANNED REPORT) PHOSPHORUS-OUTSID E LAB OUTSIDE LAB (SEE SCANNED REPORT) PTH-OUTSIDE LAB OUTS [facility] (SEE SCANNED REPORT) MICROALBUMIN RATIO-OUTSIDE LAB OUTSIDE LA B (SEE SCANNED REPORT) PROTEIN, UA-OUTSIDE LAB NEG NEG OUTSIDE LAB (SEE SCANNED REPORT) HGB 12.6 12.0 - 16.0 G/DL OUTSIDE LAB (SEE SCANNED REPORT) 03/03/2024 us History Per Patient LABORATORY Final Result OUTSIDE LAB (SEE SCANNED REPORT) documented in this encounter Advance Directives * Full Code (Latest Code Status on File) Date Activated Date Inactivated Comments 10/09/2013 12:05 PM 10/09/2013 5:52 PM This order r eflects the patients wishes and were consensually agreed upon. Care Teams Cement Car Dumper Relationship Specialty Start Date End Date Jd May DENIS Hannah [address] [place] [address] PCP - General Physician Construction Teacher 04/12/22 documented as of this encounter
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
--- OUTSIDE RECORDS SUMMARY | 2024-04-04 06:16 | External Medical Summary | Summary of Care ---
Author Name Unknown Organization [facility] Address [address] [facility] [place] [address] Phone [phone] Care Team Providers Care Director Of Curriculum And Instruction Name Role Phone Jd Baylee Hannah PA-C Primary Care Provider [phone] Encounter Details Date Type Department Care Team (Late st Contact Info) Description 03/03/2024 Result Scan Unspecified Department <No scans attached> Allergies Active Allergy Reactions Criticality Noted Date [...] mRNA, LNP-s, No Pre serve, 2-Dose Series (SeoPult) 12/14/2020,04/29/2020,04/01/2020 Covid-19, Mrna, Lnp-s, Pf, B ivalent, 30 Mcg, IM, 12 yrs and above (Pfizer) 01/10/2022 Pneumococcal Conjugate Vacci ne, 20-valent ([id number]) 10/22/2023 Pneumococcal Polysaccharide PPV23 (Pneumovax) 08/18/2016 Seasonal [...] No 01/09/2024 Does the household have a presbyterian kaseman hospitallar source of income? (Household - for [...] 2:00 PM EST Office Visit [facility] [address] [place] [place] [address] Baylee Miles PA-C [address] [place] [address] [address] 04/10/2024 11:00 AM EST Office Visit Family Practice [facility] [address] [place] [address] Baylee Miles PA-C 200 [facility] [place] [address] 05/16/2024 12:40 PM EDT Office Visit Optometry, [place] [address] [place] [address] Reginaldo Duke, OD [address] [place] [address] 06/23/2024 1:00 PM EDT Imaging Radiology [facility] [address] [place] [phone] 07/31/2024 10:30 AM EDT Office Visit Rheumatology [facility] [address] [place] [phone] Moy Dee PA-C [address] [place] [address] [employer] [place] [address] 03/05/2025 2:00 PM EST Nurse Only Ancillary [facility] [address] [place] [address] [place], Nurse Annual [facility] [address] [place] [address] Scheduled Procedures Name Priority Associated Diagnoses Date/Ti [...] D LEVEL ONCE IN A LIFETIME-USE SMARTSET# [id number] Completed 02/14/2023, 06/21/2022, 10/26/2021, Additional history exists [...] this encounter Medical Devices Implanted Type Area L D Rn Device Identifier Shelf Expiration Date Model / Serial / Lot Plate Vol Lcp 2.4mm 02.111.621 - [id number] Implanted:Qty: 1 on 10/09/2013 at [facility] Left: Wrist SYNTHES .111.621 / / [id number] Screw Sami 2.4x12 201.762 - [id number] Implanted:Qty: 1 on 10/09/2013 at [facility] Left: Wrist SYNTHES 201.762 / / Scrw Lkg 2.4mm Va 22mm - [id number] Implanted:Qty: 1 on 10/09/2013 at [facility] Left: Wrist SYNTHES .210.122 / / Scrw Lkg 2.4mm Va 20mm - [id number] Implanted:Qty: 3 on 10/09/2013 at [facility] Left: Wrist SYNTHES 02.210.120 / / Scrw Lkg 2.4mm Va 18mm - [id number] Implanted:Qty: 1 on 10/09/2013 at [facility] Left: Wrist SYNTHES 02.210.118 / / Scrw Lkg 2.4mm Va 16mm - [id number] Implanted:Qty: 1 on 10/09/2013 at [facility] Left: Wrist SYNTHES 02.210.116 / / Screw Locking 2.4x12mm 212.812 - [id number] Implanted:Qty: 1 on 10/09/2013 at [facility] Left: Wrist SYNTHES 212.812 / / documented as of this encounter Procedures Procedure Name Priority Date/Time Associated Diagnosis Comments ECHOCARDIOLOGY SCANNED RESULT 03/03/2024 RADIOLOGY SCANNED RESULT 03/03/2024 documented in this encounter Results * RADIOLOGY SCANNED RESULT (03/03/2024) 03/03/2024 us No Physician Data Unknown DIAGNOSTIC RADIOLOGY S ERVICES Final Result * ECHOCARDIOLOGY SCANNED RESULT (03/03/2024) 03/03/2024 us No Physician Data Unknown ECHOCARDIOLOGY Final Result documented in this encounter Advance Directives * Full Code (Latest Code Status on File) Date Activated Date Inactivated Comments 10/09/2013 12:05 PM 10/09/2013 5:52 PM This order re flects the patients wishes and were consensually agreed upon. Care Teams Director Of Curriculum And Instruction Relationship Specialty Start Date End Date Jd May DENIS Hannah [address] [place] [address] [place] [address] PCP - General Physician Estimate Clerk 04/12/22 documented as of this encounter
--- OUTSIDE RECORDS SUMMARY | 2024-04-04 06:16 | External Medical Summary | Summary of Care ---
Author Name Unknown Organization [facility] Address [address] [facility] [address] Phone [phone] Care Team Providers Care Logging Contractor Name Role Phone Baylee Miles PA-C Primary Care Provider [phone] Reason for Visit * Reason Comments eRx-Medication Refill Encounter Details Date Type Department Care Team (Late st Contact Info) Description 03/14/2024 Refill Family Practice [facility] [address] [place] [address] Baylee Miles PA-C 200 [facility] [place] [address] HTN, goal below 140/90 Allergies Active Allergy Reactions Criticality Noted Date Comments Adhesive Tape 02/03/2023 Other Reaction(s): SKIN IRRITATION RIPS SKIN OFF WITH SOME TAPE Pollen Other (Please comment) 09/08/2013 Sneezing, runny nose, watery eyes Ragweed Other (Please comment) 09/08/2013 Sneezing, runny nose, watery eyes Tramadol Low 02/03/2023 Other Reaction(s): nausea documented as of this encounter (statuses as of 03/14/2024) Medications Aspirin 81 MG Tablet Take 1 Tablet by mouth in the morning. Active Vitamin D3 10 MCG (400 UNIT) Oral Tablet Take 1 Tablet by mouth in the morning. Active Simvastatin 40 MG Oral Tablet (Zocor)Indications:Pure hypercholesterolemia Take 1 Tablet by mouth every evening. 90 Tablet 3 024 Active Gabapentin 300 MG Oral Capsule (Neurontin) Take 1 Capsule by mouth in the morning and 1 Capsule at noon and 1 Capsule in the evening and 1 Capsule before bedtime. 120 Capsule 5 024 Active metFORMIN HCl ER 500 MG Oral Tablet Extended Release 24 Hour (Glucophage XR) Take 2 Tablets by mouth daily with dinner. 180 Tablet 1 024 Active amLODIPine Besylate 5 MG Oral Tablet (Norvasc) TAKE 1 TABLET BY MOUTH EVERY DAY IN THE MORNING 90 Tablet 3 024 Active Lisinopril 40 MG Oral TabletIndications:HTN, goal below 140/90 TAKE 1 TABLET BY MOUTH EVERY DAY 90 Tablet 1 025 Active hydroCHLOROthiazide 12.5 MG Oral CapsuleIndications:HTN, goal below 140/90 TAKE 1 CAPSULE BY MOUTH EVERY MORNING 90 Capsule 2 025 Active hydroCHLOROthiazide 12.5 MG Oral CapsuleIndications:HTN, goal below 140/90 TAKE 1 CAPSULE BY MOUTH EVERY MORNING 90 Capsule 2 024 2024 Discontinued documented as of this encounter (statuses as of 03/14/2024) Active Problems Problem Noted Date Diagnosed Date [...] as of this encounter (statuses as of 03/14/2024) Resolved Problems Problem Noted Date Diagnosed Date [...] as of this encounter (statuses as of 03/14/2024) Immunizations Name Administration Dates Next Due COVID-19 mRNA, LNP-s, No Pre serve, 2-Dose Series (yoone) 12/14/2020,04/29/2020,04/01/2020 Covid-19, Mrna, Lnp-s, Pf, B ivalent, 30 Mcg, IM, 12 yrs and above (yoone) 01/10/2022 Pneumococcal Conjugate Vacci ne, 20-valent ([id number]) 10/22/2023 Pneumococcal Polysaccharide PPV23 (Pneumovax) 08/18/2016 Seasonal [...] PM EDT documented as of this encounter Miscellaneous Notes * Telephone Encounter - Yusuf Allen [facility] - 03/14/2024 10:59 AM EST Signed Prescriptions: Disp Refills hydroCHLOROthiazide 12.5 MG Oral Capsule 90 Cap*2 Sig: TAKE 1 CAPSULE BY MOUTH EVERY MORNINGAuthorizing Provider: BAYLEE MILES User: YUSUF ALLEN documented in this encounter Plan of Treatment Upcoming Encounters Date Type Department Care Team (Late st Contact Info) Description 04/01/2024 2:00 PM EST Office Visit [facility] [address] [place] [address] Baylee Miles PA-C [address] [place] [address] 04/10/2024 11:00 AM EST Office Visit [facility] [address] [place] [address] Baylee Miles PA-C [address] [place] [address] [address] 05/16/2024 12:40 PM EDT Office Visit [facility] [address] [place] [address] Reginaldo Duke, OD 16 [place] [address] 06/23/2024 1:00 PM EDT Imaging Radiology [facility] [address] [place] [phone] 07/31/2024 10:30 AM EDT Office Visit Rheumatology [facility] [address] [place] [phone] Moy Dee PA-C [address] [facility] [place] [address] 03/05/2025 2:00 PM EST Nurse Only Ancillary [facility] [place] [address] [place] [address] Yeni, Nurse Annual Wellness [facility] [address] [facility] [place] [address] Scheduled Procedures Name Priority Associated Diagnoses Date/Ti [...] 03/03/2025 03/03/2024, 07/06, 02/14/2023, Additional history exists Colonoscopy 07/29/2027 07/28/2022, 07/07, 06/13/2017, Additional history exists Colorectal Cancer Screening 07/29/2027 Lipid Panel 02/15/2028 02/14/2023, 08/06, 05/12/2020, Additional history exists Cervical Cancer Screening Discontinued Pap Smear Discontinued 09/08/2013 (Refused) Zoster Vaccines Completed 03/06/2019, 11/07, 02/18/2016 RETIRED - COLONOSCOPY-EVERY 5 YRS AGES 18-100 Discontinued 07/28/2022, 07/28/2022, 06/13/2017, Additional history exists VITAMIN D LEVEL ONCE IN A LIFETIME-USE SMARTSET# [id number] Completed 02/14/2023, 06/21/2022, 10/26/2021, Additional history exists [...] this encounter Medical Devices Implanted Type Area Electric Accounting Machine Operator Device Identifier Shelf Expiration Date Model / Serial / Lot Plate Vol Lcp 2.4mm 621 - [id number] Implanted:Qty: 1 on 10/09/2013 at OR [facility] Left: Wrist SYNTHES 621 / / [id number] Screw Sami 2.4x12 201.762 - [id number] Implanted:Qty: 1 on 10/09/2013 at [facility] Left: Wrist SYNTHES 201.762 / / Scrw Lkg 2.4mm Va 22mm - [id number] Implanted:Qty: 1 on 10/09/2013 at [facility] Left: Wrist SYNTHES 02.210.122 / / Scrw Lkg 2.4mm Va 20mm - [id number] Implanted:Qty: 3 on 10/09/2013 at [facility] Left: Wrist SYNTHES 02.210.120 / / Scrw Lkg 2.4mm Va 18mm - [id number] Implanted:Qty: 1 on 10/09/2013 at [facility] Left: Wrist SYNTHES 02.210.118 / / Scrw Lkg 2.4mm Va 16mm - [id number] Implanted:Qty: 1 on 10/09/2013 at OR [facility] Left: Wrist SYNTHES .210.116 / / Screw Locking 2.4x12mm 212.812 - [id number] Implanted:Qty: 1 on 10/09/2013 at OR [facility] Left: Wrist SYNTHES 212.812 / / documented as of this encounter Visit Diagnoses Diagnosis HTN, goal below 140/90 Unspecified essential hypertension documented in this encounter Advance Directives * Full Code (Latest Code Status on File) Date Activated Date Inactivated Comments 10/09/2013 12:05 PM 10/09/2013 5:52 PM This order re flects the patients wishes and were consensually agreed upon. Care Teams Logging Contractor Relationship Specialty Start Date End Date JdMay DENIS Hannah [address] [place] [address] PCP - General Physician Cardiology Clinical Consultant 04/12/22 documented as of this encounter
[2024-04-04] MEDS ORDERED: ePHEDrine sulfate 50 MG/5 ML SYR ONE (06:42)
[2024-04-04] MEDS: GABAPENTIN 300 MG CAP PO SCH (06:44)
[2024-04-04] MEDS: CeleBREX 200 MG CAP PO SCH (06:44)
[2024-04-04] MEDS: LR 60ML/HR IV SCH (06:44)
[2024-04-04] MEDS: LR 15ML/HR IV SCH (06:44)
[2024-04-04] MEDS: ACETAMINOPHEN 500 MG TAB PO SCH (06:44)
[2024-04-04] MEDS ORDERED: LABETALOL HCL IV 5 MG/ML 20ML IV PRN (06:51)
[2024-04-04] MEDS ORDERED: FLUMAZENIL 0.1 MG/1 ML 10 ML VIAL IV PRN (06:51)
[2024-04-04] MEDS ORDERED: HYDROmorphone INJ 1 MG/ML SYRINGE IV PRN ×2 (06:51→12:29)
[2024-04-04] MEDS ORDERED: ONDANSETRON INJ 2 MG/ML 2 ML VIAL IV PRN (06:51)
[2024-04-04] MEDS ORDERED: ePHEDrine sulfate 50 MG/ML AMP IV PRN (06:51)
[2024-04-04] MEDS ORDERED: PROMETHAZINE HCL 6.25 MG in SODIUM CHLORIDE 0.9% 50 ML IV PRN (06:51)
[2024-04-04] MEDS ORDERED: ATROPINE SULFATE 0.1 MG/ML 10ML SYR IV PRN (06:51)
[2024-04-04] MEDS ORDERED: NALOXONE HCL 0.4 MG/1 ML VIAL/CARP IV PRN ×2 (06:51→12:29)
[2024-04-04] MEDS ORDERED: fentaNYL citrate PF 100 MCG/2 ML VIAL ONE (06:52)
[2024-04-04] MEDS ORDERED: ROCURONIUM BROMIDE 10 MG/ML 5 ML VIAL IV ONE (06:52)
[2024-04-04] MEDS ORDERED: LIDOCAINE 2% 2 ML VIAL/AMP(20MG/ML) INFIL ONE (06:52)
[2024-04-04] MEDS ORDERED: METOCLOPRAMIDE HCL INJ 5 MG/ML 2 ML VIAL ONE (06:52)
[2024-04-04] MEDS ORDERED: ONDANSETRON INJ 2 MG/ML 2 ML VIAL ONE (06:52)
[2024-04-04] MEDS ORDERED: MIDAZOLAM HCL 1 MG/ML 2ML VIAL ONE (06:52)
[2024-04-04] MEDS ORDERED: PROPOFOL IV EMULSION 10 MG/ML 20 ML VIAL IV ONE (06:52)
[2024-04-04] MEDS ORDERED: DEXAMETHASONE SOD INJ 4 MG/ML VIAL ONE (06:52)
[2024-04-04] MEDS ORDERED: SUGAMMADEX SODIUM 200 MG/2 ML VIAL IV ONE (06:53)
[2024-04-04] MEDS ORDERED: LARYING-O-JET KIT (LTA) ONE (07:01)
--- NOTE | 2024-04-04 07:39 | History & Physical Bridge Note ---
Date of Service April 04, 2024 History & Physical Bridge Note I have examined the patient, reviewed the History & Physical and in the interval since the performance of the History & Physical I have noted the following changes of clinical significance: no changes noted
--- NOTE | 2024-04-04 07:41 | History & Physical Report ---
Date of Service April 04, 2024 Assessment & Plan (1) Multilevel lumbosacral spondylosis with radiculopathy: Plan: Removal hardware L4-L5 L3-L4 decompression and fusion History of Present Illness Chief Complaint: Back and leg pain Primary Care Provider: Baylee Miles PA-C This is a 68-year-old female presents with chronic persistent back and leg pain and failing course of nonoperative care is here for surgical intervention. Allergies Allergy/AdvReac Type Severity Reaction Status Date / Time adhesive AdvReac Mild Skin Verified 04/04/24 06:28 irritation, "skin rips off" with some tape tramadol AdvReac Mild Nausea Verified 04/04/24 06:28 prednisone AdvReac Unknown "Family Verified 04/04/24 06:28 allergic" (patient unsure if allergic) Home Medications Medication Instructions Recorded Confirmed Type aspirin 81 mg tablet,delayed 81 mg PO QAM 02/03/23 04/04/24 History release lisinopril 40 mg tablet 40 mg PO QPM 02/03/23 04/04/24 History loratadine 10 mg tablet (Claritin) 10 mg PO DAILY PRN allergies 02/03/23 04/04/24 History simvastatin 40 mg tablet 40 mg PO QPM 02/03/23 04/04/24 History amlodipine 5 mg tablet 5 mg PO QAM 02/20/24 04/04/24 History cholecalciferol (vitamin D3) 10 20 mcg PO QAM 02/20/24 04/04/24 History mcg (400 unit) chewable tablet (Vitamin D3) gabapentin 300 mg capsule 300 - 600 mg PO TID PRN Pain 02/20/24 04/04/24 History hydrochlorothiazide 12.5 mg capsule 12.5 mg PO QAM 02/20/24 04/04/24 History berberine chloride 1 tab PO DAILY 04/04/24 04/04/24 History Past Med/Surg History Problem List (Updated 04/04/24 @ 07:40 by Lonnie Young DO) Multilevel lumbosacral spondylosis with radiculopathy Greater trochanteric bursitis of right hip Right knee DJD GERD (gastroesophageal reflux disease) (Chronic) HTN (hypertension) (Chronic) Diabetes mellitus, type II (Chronic) DDD (degenerative disc disease), lumbar (Chronic) Migraines (Chronic) Medical History Arthritis Degenerative disc disease Diabetes mellitus, type 2 Hx of basal cell carcinoma Hx TIA/stroke w/o resid x2 events (10+ years ago) Hyperlipidemia Hypertension Kidney anomaly, congenital Right sided kidney "overgrowth" Surgical History H/O unilateral oophorectomy benign tumor removed H/O wrist surgery left History of section x2 History of colonoscopy History of lumbar fusion L4-5 (2014) History of tooth extraction History of total hip arthroplasty right Family History Other No family history of adverse response to anesthesia Social History Smoking Status: Former smoker Tobacco Type: Cigarettes Smoking End Date: Quit 2017; Second Hand Exposure: No; Do You Dip or Chew Tobacco: No; Hx Alcohol Use: Yes Alcohol type: hard liquor Preferred Language: Yi Customer Data Technician Required: No Beliefs That Will Affect Care: None Current Living Situation: Spouse Feels Safe at Home: Yes Safety Concerns: Feels Safe At This Time Assistive Devices: Glasses Physical Exam Physical Exam: Patient is alert and oriented Heart regular rhythm Lungs clear Results & Data Results & Data Vital Signs (Past 12 Hours) Vital Signs Temp Pulse Resp BP Pulse Ox O2 Del Method 04/04/24 06:40 Room Air 04/04/24 06:30 36.4 C L 100 H 22 127/86 94 Room Air
[2024-04-04] MEDS: ceFAZolin 2000MG 2,000 MG/15 ML SYR IV SCH ×2 (07:46→17:09)
[2024-04-04] MEDS: BUPIVACAINE/EPINEPHRINE 0.25% 1:200,000 30 ML VIAL ONE (08:35)
[2024-04-04] MEDS: ceFAZolin 330 MG/ML 1 GM VIAL ONE (08:36)
[2024-04-04] MEDS ORDERED: PHENYLEPHRINE 100MCG/ML 5ML SYR ONE (08:47)
[2024-04-04] MEDS ORDERED: PHENYLEPHRINE HCL 10 MG/ML VIAL ONE (08:47)
[2024-04-04] MEDS: FLOSEAL HEMOSTATIC MATRIX 10ML TOP ONE (09:14)
--- NOTE | 2024-04-04 09:22 | Operative Report ---
Post Operative Report Pre & Post Diagnosis Operation Date: 04/04/24 07:45 Pre-Op Diagnosis: #1 lumbar spondylolisthesis with radiculopathy #2 lumbar spondylosis with radiculopathy. #3 lumbar spinal stenosis Post-Op Diagnosis: Same I identified the patient and participated in the time-out.: Yes Procedure Operation Date: 04/04/24 07:45 Actual Procedures #1 removal of posterior instrumentation L4-L5. #2 exploration of fusion L4-5 by #3 lumbar decompression with bilateral male facetectomies and foraminotomies L2- L3 L3-L4. #4 posterior spinal fusion L3-L4. #5 placement posterior instrumentation L3-L5. #6 interbody fusion L3-L4. #7 placement Spira 12 x 26 mm cage at L3-L4. #8 placement locally harvested morselized autograft and posterior gutters. #9 placement infuse collagen sponge, with Koros in the posterior lateral gutters and os design and interbody space. #10 application of versa wrap over the exposed dura. Surgeon Lonnie Young, DO Stakes Player Leeroy Perez Estimated Blood Loss 100 Findings Consistent with Post-Op Diagnosis Specimens None Indications This is a 68-year-old female presents publish diagnosis after failing course of nonoperative care is here for surgical invention. Description of Procedure Patient met with identified informed consent obtained. Patient was then taken to the operative suite underwent intubation placed in a prone position on the Abdoulaye table atop the Jah frame. All bony promises well-padded eyes inspected to ensure no external pressure placed upon them. This point lumbar spine was prepped and draped in the normal sterile fashion. Sharp dissection with the assistance of Bovie cautery performed down to and exposing the lamina transverse processes of L3 and instrumentation L4-5 bilaterally. Then proceeded move the hardware bilaterally explored the fusion mass noting it being mature and intact. Informed complete laminectomy of L3 including bilateral medial facetectomies and foraminotomies addressing severe spinal stenosis. Informed partial laminectomy of L2 with bilateral medial facetectomies to address all subarticular stenosis. Pedicle screws were then placed at L3 L4-5 bilaterally with assistance of fluoroscopy and appropriately sized duarte placed. By way of a transforaminal approach on the left a complete discectomy of L3-L4 was performed endplates corrected to subcortical bleeding bone and a 12 x 26 mm Spira cage filled with os design bone graft tapped in position. The rods were then locked in a final position bilaterally. The transverse processes of L3-L4 burred to subcortical bleeding bone. Infuse collagen sponge, with Koros and local autograft placed in the posterior gutters. Versa wrap placed over the exposed dura. 15 round TANVIR drain inserted. The incision was then closed with 1 Vicryl in the fascia 2-0 Vicryl subcutaneously and 4 Monocryl for final skin closure. Steri-Strips and sterile dressing placed. Patient waken taken PACU stable condition. Please note spinal cord monitoring was utilized at the procedure no changes noted. Leeroy Redman was present at the entire surgery involved the patient positioning complex portion of the surgery and final skin closure. I attest to the content of the Intraoperative Record and any orders documented therein. Any exceptions are noted below.
[2024-04-04] MEDS: fentaNYL citrate PF 100 MCG/2 ML VIAL IV PRN (09:58)
--- NOTE | 2024-04-04 10:09 | Fluoroscopy Report ---
FL lumbar spine 2-3V CLINICAL HISTORY: L4-L5 DECOMPRESSION COMPARISON STUDY: None FLUOROSCOPY TIME: 12 seconds FLUOROSCOPY IMAGES: 3 EXPOSURE DOSE: 7 mGy FINDINGS: Fluoroscopy was provided for lumbar spine surgery. IMPRESSION: Intraoperative fluoroscopy. ACT 112: Negative or not required by law. Electronically signed by: Onesimo Phillips M.D. 04/04/2024 10:07 AM
--- NOTE | 2024-04-04 11:15 | Anesthesiology Progress Note ---
Date of Service April 04, 2024 Anesthesia Post Procedure Vital Signs Vital Signs: Temp Pulse Pulse Resp BP Pulse Ox O2 Del Method 04/04/24 11:00 87 17 119/75 95 Nasal Cannula 04/04/24 10:50 88 16 110/65 95 Nasal Cannula 04/04/24 10:40 87 21 106/74 95 Nasal Cannula 04/04/24 10:30 91 H 20 114/83 96 Nasal Cannula 04/04/24 10:20 36.9 C 88 13 112/80 96 Nasal Cannula 04/04/24 10:10 89 18 115/82 97 Nasal Cannula 04/04/24 10:00 89 14 99/63 L 95 Room Air 04/04/24 09:50 92 H 13 117/72 99 Oxymask 04/04/24 09:42 36.9 C 98 H 15 136/85 100 Oxymask 04/04/24 06:40 Room Air 04/04/24 06:30 36.4 C L 100 H 22 127/86 94 Room Air O2 Flow Rate 04/04/24 11:00 2 04/04/24 10:50 2 04/04/24 10:40 2 04/04/24 10:30 2 04/04/24 10:20 2 04/04/24 10:10 2 04/04/24 10:00 04/04/24 09:50 8 04/04/24 09:42 8 04/04/24 06:40 04/04/24 06:30 Pain Intensity Lower Back: Pain Intensity: 6 Transfer of Care Handoff Completed per policy Notes Mental Status: alert / awake / arousable Patient Amnestic to Procedure: Yes Nausea / Vomiting: adequately controlled Pain: adequately controlled Airway Patency, RR, SpO2: stable & adequate BP & HR: stable & adequate Hydration State: stable & adequate Anesthetic Complications: no major complications apparent
[2024-04-04] MEDS ORDERED: SOD PHOSPHATE/SOD BIPHOSPHATE ENEMA 132 ML BTL PR PRN (12:29)
[2024-04-04] MEDS ORDERED: ALUMINUM/MAGNESIUM SUSP 30 ML UDC PO PRN (12:29)
[2024-04-04] MEDS ORDERED: LORazepam 0.5 MG TAB PO PRN (12:29)
[2024-04-04] MEDS ORDERED: bisacodyL 10 MG SUPP PR PRN (12:29)
[2024-04-04] MEDS ORDERED: ONDANSETRON 4 MG OD TAB PO PRN (12:29)
[2024-04-04] MEDS ORDERED: LORazepam 2 MG/1 ML VIAL IV PRN (12:29)
[2024-04-04] MEDS ORDERED: ACETAMINOPHEN 1,000 MG/100 ML VIAL IV PRN (12:29)
[2024-04-04] MEDS ORDERED: DO NOT ADMINISTER PNEUMOCOCCAL VACCINE PRN (12:29)
[2024-04-04] MEDS ORDERED: MAGNESIUM HYDROXIDE SUSP 30 ML UDC PO PRN (12:29)
[2024-04-04] MEDS ORDERED: DO NOT ADMINISTER FLU VACCINE PRN (12:29)
[2024-04-04] MEDS ORDERED: hydrOXYzine HCl 25 MG TAB PO PRN (12:29)
[2024-04-04] MEDS: FAMOTIDINE/PF 20 MG/2 ML VIAL IV ONE (12:58)
[2024-04-04] MEDS: oxyCODONE HCL IR 5 MG TAB (IMMEDIATE RELEASE) PO PRN (13:02)
[2024-04-04] MEDS ORDERED: DEXTROSE 50% 50 ML SYRINGE IV PRN (15:24)
[2024-04-04] MEDS ORDERED: GLUCOSE 40% GEL 15 GM TUBE PO PRN (15:24)
[2024-04-04] MEDS ORDERED: GLUCOSE 10 TAB/TUBE PO PRN (15:24)
[2024-04-04] MEDS ORDERED: GLUCAGON FOR INJ 1 MG VIAL SQ PRN (15:24)
[2024-04-04] MEDS ORDERED: CARBOHYDRATES FOR HYPOGLYCEMIA PO PRN (15:24)
--- NOTE | 2024-04-04 15:31 | Consultation ---
Date of Consultation April 04, 2024 Assessment & Plan (1) GERD (gastroesophageal reflux disease): (2) HTN (hypertension): (3) Diabetes mellitus, type II: (4) DDD (degenerative disc disease), lumbar: (5) Migraines: (6) Multilevel lumbosacral spondylosis with radiculopathy: Plan Assessment and plan: DDD S/p lumbar decompression/fusion 04/04: Pain control/DVT prophylaxis/PT/OT Hx HTN: Continue amlodipine/HCTZ/lisinopril Hx HLD: Continue statin Hx DM2: Last A1c 7.11 February 2024 Was on metformin prior, now taking berberine chloride Will initiate SSI while inpatient A total of 45 minutes was spent on chart review/reviewing diagnostic data/facilitating plan of care/discussion with consultants Full code DVT prophylaxis: Per primary team Supervising Physician Co-Signing Physician Notes Patient is a 68-year-old female with history of diabetes mellitus, hypertension and other medical problems was consulted for postop medical management after having L3-L4 decompression, fusion surgery by Dr. Young. Patient is doing well postoperatively. She denies any significant pain at surgical site. Also denies any chest pain, dyspnea, nausea, vomiting, abdominal pain. I personally reviewed imaging studies. Physical Exam: Vitals signs as noted above General Appearance:Obese, no apparent distress Head: normocephalic, Atraumatic Eyes: normal inspection, EOMI Neck: supple, Trachea midline Respiratory/Chest: Normal breath sounds, CTA, No accessory muscle use Cardiovascular: S1, S2, No murmur Abdomen/GI:Soft, Non tender, Bowel sounds present Back: Surgical site in dressing Extremities/Musculoskeletal:normal inspection, no edema Neurologic/Psych:AAOX3, grossly no focal neurological deficits Skin: normal color, warm Lumbar spondylolisthesis, stenosis with radiculopathy --S/P lumbar decompression, fusion surgery by Dr. Young Monitor for postop anemia Bowel regimen to prevent constipation Wound care, activity, DVT prophylaxis per primary team PT OT when appropriate Hypertension Blood pressure relatively low Continue amlodipine Resume HCTZ, lisinopril as able I personally interviewed and examined the patient at bedside. I have reviewed the advanced practitioner's documentation on the date of service referred in note and agree with plan. Patient's care is coordinated with Socrates PRESLEY. Please refer to the documentation above for details of patient's presentation and for discussion of other issues. I spent a total [id number] coordinating, documenting, and providing care for this patient excluding time spent in the performance of separately billed services or time spent by another provider/QHP. History of Present Illness Reason for Consultation: Postop med management Attending Physician: Lonnie Young, DO History of Present Illness The patient is a 68-year-old female with a past medical history of DM2, GERD, HTN, migraines, DDD who presents to the hospital on 04/04/2024 s/p L3-4 decompression and fusion, L4-L5 removal hardware with Dr. Young. We are asked to see the patient for medical management postoperatively On exam, patient denies any complaints. Reports her pain is controlled. Denies any shortness of breath or chest pain. Denies any nausea/vomiting/diarrhea. Allergies Allergy/AdvReac Type Severity Reaction Status Date / Time adhesive AdvReac Mild Skin Verified 04/04/24 06:28 irritation, "skin rips off" with some tape tramadol AdvReac Mild Nausea Verified 04/04/24 06:28 prednisone AdvReac Unknown "Family Verified 04/04/24 06:28 allergic" (patient unsure if allergic) Home Medications Medication Instructions Recorded Confirmed Type aspirin 81 mg tablet,delayed 81 mg PO QAM 02/03/23 04/04/24 History release lisinopril 40 mg tablet 40 mg PO QPM 02/03/23 04/04/24 History loratadine 10 mg tablet (Claritin) 10 mg PO DAILY PRN allergies 02/03/23 04/04/24 History simvastatin 40 mg tablet 40 mg PO QPM 02/03/23 04/04/24 History amlodipine 5 mg tablet 5 mg PO QAM 02/20/24 04/04/24 History cholecalciferol (vitamin D3) 10 20 mcg PO QAM 02/20/24 04/04/24 History mcg (400 unit) chewable tablet (Vitamin D3) gabapentin 300 mg capsule 300 - 600 mg PO TID PRN Pain 02/20/24 04/04/24 History hydrochlorothiazide 12.5 mg capsule 12.5 mg PO QAM 02/20/24 04/04/24 History berberine chloride 1 tab PO DAILY 04/04/24 04/04/24 History oxycodone 5 mg tablet 5 mg PO Q6H PRN pain #30 tabs 04/04/24 Rx Patient History Medical History Arthritis Degenerative disc disease Diabetes mellitus, type 2 Hx of basal cell carcinoma Hx TIA/stroke w/o resid x2 events (10+ years ago) Hyperlipidemia Hypertension Kidney anomaly, congenital Right sided kidney "overgrowth" Surgical History H/O unilateral oophorectomy benign tumor removed H/O wrist surgery left History of section x2 History of colonoscopy History of lumbar fusion L4-5 (2014) History of tooth extraction History of total hip arthroplasty right Family History Other No family history of adverse response to anesthesia Social History Smoking Status: Former smoker Tobacco Type: Cigarettes Smoking End Date: Quit 2017; Second Hand Exposure: No; Do You Dip or Chew Tobacco: No; Hx Alcohol Use: Yes Alcohol type: hard liquor Preferred Language: [place] Citizen Communication Ability: Effective Theater Education Teacher Required: No Beliefs That Will Affect Care: None Current Living Situation: Spouse Feels Safe at Home: Yes Safety Concerns: Feels Safe At This Time Assistive Devices: Cane and Walker Review of Systems Review of Systems: All systems reviewed & are unremarkable except as noted in HPI & below Physical Exam Constitutional: WD/WN, vitals as above Eyes: PERRL, conjunctivae normal, anicteric sclerae ENMT: external ear and nose normal, oropharynx normal Neck: trachea midline, no thyromegaly Respiratory: normal respiratory effort, lungs clear to auscultation Cardiovascular: RRR, no murmur, no edema Gastrointestinal (Abdomen): normal bowel sounds, soft, nontender, no hepatosplenomegaly Musculoskeletal: no cyanosis or clubbing, extremities motor strength 5/5 Skin: no rashes, warm and dry Neurologic: PERRL, EOMI, accommodation nl, no face palsy, no dysarthria Psychiatric: A+Ox3, euthymic affect Lymphatic: no cervical or axillary lymphadenopathy Results & Data Vital Signs (Past 12 Hours) Vital Signs Temp Pulse Pulse Resp BP Pulse Ox O2 Del Method 04/04/24 14:59 36.1 C L 84 16 110/75 96 Nasal Cannula 04/04/24 14:05 36.2 C L 86 16 104/68 96 Nasal Cannula 04/04/24 13:03 18 102/66 97 Nasal Cannula 04/04/24 12:39 79 18 106/65 97 Nasal Cannula 04/04/24 12:05 Nasal Cannula 04/04/24 12:05 36.7 C 81 16 102/66 96 Nasal Cannula 04/04/24 11:45 81 13 106/68 96 Nasal Cannula 04/04/24 11:30 85 21 119/82 95 Nasal Cannula 04/04/24 11:15 82 15 113/72 96 Nasal Cannula 04/04/24 11:00 87 17 119/75 95 Nasal Cannula 04/04/24 10:50 88 16 110/65 95 Nasal Cannula 04/04/24 10:40 87 21 106/74 95 Nasal Cannula 04/04/24 10:30 91 H 20 114/83 96 Nasal Cannula 04/04/24 10:20 36.9 C 88 13 112/80 96 Nasal Cannula 04/04/24 10:10 89 18 115/82 97 Nasal Cannula 04/04/24 10:00 89 14 99/63 L 95 Room Air 04/04/24 09:50 92 H 13 117/72 99 Oxymask 04/04/24 09:42 36.9 C 98 H 15 136/85 100 Oxymask 04/04/24 06:40 Room Air 04/04/24 06:30 36.4 C L 100 H 22 127/86 94 Room Air O2 Flow Rate 04/04/24 14:59 2 04/04/24 14:05 2 04/04/24 13:03 2 04/04/24 12:39 2 04/04/24 12:05 2 04/04/24 12:05 2 04/04/24 11:45 2 04/04/24 11:30 2 04/04/24 11:15 2 04/04/24 11:00 2 04/04/24 10:50 2 04/04/24 10:40 2 04/04/24 10:30 2 04/04/24 10:20 2 04/04/24 10:10 2 04/04/24 10:00 04/04/24 09:50 8 04/04/24 09:42 8 04/04/24 06:40 04/04/24 06:30
[2024-04-04] MEDS ORDERED: PHARMACY GLYCEMIC MGMT CONSULT PRN (16:09)
[2024-04-04] MEDS: LANTUS PER UNIT CHARGE SC SCH (17:09)
[2024-04-04] MEDS: INSULIN ASPART PER UNIT CHARGE SC SCH ×2 (17:10→23:40)
[2024-04-04] MEDS: ONDANSETRON INJ 2 MG/ML 2 ML VIAL IV PRN (19:15)
[2024-04-04] MEDS: SIMVASTATIN 40 MG TAB PO SCH (19:20)
[2024-04-04] MEDS: DOCUSATE SODIUM/SENNA 50/8.6MG TAB PO SCH (19:20)
[2024-04-04] MEDS: HYDROmorphone INJ 0.5 MG/0.5 ML SYR IV PRN (20:37)
[2024-04-04] MEDS: METOCLOPRAMIDE HCL INJ 5 MG/ML 2 ML VIAL IV PRN (20:58)
[2024-04-04] MEDS ORDERED: lisinopril 40 MG TAB PO SCH (21:00)
[2024-04-04] MEDS ORDERED: SIMVASTATIN 40 MG TAB PO SCH (21:00)
[2024-04-04] MEDS: diphenhydrAMINE Capsule 25 MG CAP PO PRN (23:40)
[2024-04-04] MEDS: FAMOTIDINE 20 MG TAB PO PRN (23:40)
[2024-04-04] MEDS: ACETAMINOPHEN 500 MG TAB PO PRN (23:40)
[2024-04-05] MEDS: PROMETHAZINE 12.5 MG/50.5 ML BAG IV PRN (00:14)
[2024-04-05] MEDS: POLYETHYLENE (MIRALAX) 17 GM PACK PO SCH (05:47)
[2024-04-05 07:26] LABS: Basophils # (auto) 0.04 K/uL (0.00-0.20); Basophils % (auto) 0.5 %; Eosinophils # (auto) 0.02 K/uL (0.00-0.50); Eosinophils % (auto) 0.2 %; Hematocrit (blood only) 33.5 % (37.0-47.0); Hemoglobin 11.4 g/dl (12.0-16.0); Immature Granulocytes # (auto) 0.05 K/uL (0.01-0.20); Immature Granulocytes % (auto) 0.6 %; Lymphocytes # (auto) 0.99 K/uL (1.20-3.40); Lymphocytes % (auto) 11.5 %; Mean Corpuscular Hemoglobin 31.9 pg (25.0-34.0); Mean Corpuscular Volume 93.8 fL (80.0-100.0); Mean Platelet Volume 9.1 fL (9.4-12.4); Monocytes # (auto) 0.69 K/uL (0.11-0.59); Neutrophils # (auto) 6.83 K/uL (1.40-6.50); Neutrophils % (auto) 79.2 %; Platelet Count 227 K/uL (130-400); RDW Coefficient of Variation 12.5 % (11.5-14.5); RDW Standard Deviation 43.1 fL (36.4-46.3); Red Blood Count 3.57 M/uL (4.20-5.40); White Blood Count 8.62 K/ul (4.8-10.8)
[2024-04-05 07:44] LABS: Calcium 8.6 mg/dl (8.6-10.3); Creatinine Clr Calc Pharmacy 38.1 ml/min; Magnesium 1.6 mg/dl (1.7-2.4)
--- NOTE | 2024-04-05 08:12 | Hospitalist Progress Note ---
Date of Service April 05, 2024 Assessment & Plan (1) GERD (gastroesophageal reflux disease): (2) HTN (hypertension): (3) Diabetes mellitus, type II: (4) DDD (degenerative disc disease), lumbar: (5) Migraines: (6) Multilevel lumbosacral spondylosis with radiculopathy: Plan Assessment and plan: DDD S/p lumbar decompression/fusion 04/04: Pain control/DVT prophylaxis/PT/OT per surgeon --S/P lumbar decompression, fusion surgery by Dr. Young Monitor for postop anemia Bowel regimen to prevent constipation Wound care, activity, DVT prophylaxis per primary team PT OT when appropriate Acute blood loss anemia, post-op, vs dilutional post -op Hgb 11.4 , preop 12.6 expected, no need for blood transfusion Hyponatremia, ALIE Na 129 this AM Cr 1.38 this AM Na 136 in February, however low Na 128 noted back in 2018 Cr 1 in February, however Cr 1.5 back in 2017 Will give NS IVF, hold HCTZ, closely monitor , will re-check PM and AM encourage oral intake HTN: on amlodipine/HCTZ/lisinopril at home - hold HCTZ and lisinopril - monitor BP HLD: Continue statin DM2: Last A1c 7.11 February 2024 Was on metformin prior, now taking berberine chloride Will initiate SSI while inpatient Full code DVT prophylaxis: Per primary team Admission and Anticipated Discharge Date Admission Date: April 04, 2024 Subjective Pt seen in follow up of med consult , s/p spinal surgery Sitting up in bed in NAD, daughter and grand-daughter present at the bedside no fever, chills, chest pain, shortness of breath, no abd. pain, n/v + back pain, no leg pain Review of Systems Review of Systems: All systems reviewed & are unremarkable except as noted in Subjective Physical Exam Physical Exam: General Appearance: Obese, no apparent distress Head: normocephalic, Atraumatic Eyes: normal inspection, EOMI Neck: supple Respiratory/Chest: Normal breath sounds, CTA, No accessory muscle use Cardiovascular: S1, S2, No murmur Abdomen/GI: Soft, Non tender, Bowel sounds present Back: Surgical site in dressing Extremities/Musculoskeletal:normal inspection, no edema Neurologic/Psych:AAOX3, grossly no focal neurological deficits Skin: normal color, warm Results & Data Results & Data Vital Signs (Past 12 Hours) Vital Signs Temp Pulse Resp BP Pulse Ox O2 Del Method 04/05/24 04:15 36.4 C L 71 18 101/63 94 Room Air 04/04/24 23:35 36.7 C 84 16 111/65 93 Room Air Laboratory Results 04/05/24 04/05/24 04/05/24 Range/Units 07:49 06:58 04:14 WBC 8.62 (4.8-10.8) K/ul RBC 3.57 L (4.20-5.40) M/uL Hgb 11.4 L (12.0-16.0) g/dl Hct 33.5 L (37.0-47.0) % MCV 93.8 (80.0-100.0) fL MCH 31.9 (25.0-34.0) pg MCHC 34.0 (32.0-36.0) g/dL RDW Std Deviation 43.1 (36.4-46.3) fL RDW Coeff of Teodoro 12.5 (11.5-14.5) % Plt Count 227 (130-400) K/uL MPV 9.1 L (9.4-12.4) fL Immature Gran % (Auto) 0.6 % Neut % (Auto) 79.2 % Lymph % (Auto) 11.5 % [place] % (Auto) 8.0 % Eos % (Auto) 0.2 % Baso % (Auto) 0.5 % Neut # (Auto) 6.83 H (1.40-6.50) K/uL Lymph # (Auto) 0.99 L (1.20-3.40) K/uL [place] # (Auto) 0.69 H (0.11-0.59) K/uL Eos # (Auto) 0.02 (0.00-0.50) K/uL Baso # (Auto) 0.04 (0.00-0.20) K/uL Immature Gran # (Auto) 0.05 (0.01-0.20) K/uL Sodium 129 L (136-145) mmol/L Potassium 4.0 (3.5-5.1) mmol/L Chloride 93 L (98-107) mmol/L Carbon Dioxide 26 (21-32) mmol/L Anion Gap 10 (3-11) BUN 18 (6-23) mg/dl Creatinine 1.38 H (0.6-1.2) mg/dl Est Cr Clr Drug Dosing 38.1 ml/min eGFR 42.22 BUN/Creatinine Ratio 13.0 (10-20) Glucose 210 H (70-99(Fasting)) mg/dl POC Glucose 209 H 164 H (70-99) mg/dl Calcium 8.6 (8.6-10.3) mg/dl Magnesium 1.6 L (1.7-2.4) mg/dl 04/04/24 04/04/24 04/04/24 Range/Units 23:32 20:23 16:33 WBC (4.8-10.8) K/ul RBC (4.20-5.40) M/uL Hgb (12.0-16.0) g/dl Hct (37.0-47.0) % MCV (80.0-100.0) fL MCH (25.0-34.0) pg MCHC (32.0-36.0) g/dL RDW Std Deviation (36.4-46.3) fL RDW Coeff of Teodoro (11.5-14.5) % Plt Count (130-400) K/uL MPV (9.4-12.4) fL Immature Gran % (Auto) % Neut % (Auto) % Lymph % (Auto) % [place] % (Auto) % Eos % (Auto) % Baso % (Auto) % Neut # (Auto) (1.40-6.50) K/uL Lymph # (Auto) (1.20-3.40) K/uL [place] # (Auto) (0.11-0.59) K/uL Eos # (Auto) (0.00-0.50) K/uL Baso # (Auto) (0.00-0.20) K/uL Immature Gran # (Auto) (0.01-0.20) K/uL Sodium (136-145) mmol/L Potassium (3.5-5.1) mmol/L Chloride (98-107) mmol/L Carbon Dioxide (21-32) mmol/L Anion Gap (3-11) BUN (6-23) mg/dl Creatinine (0.6-1.2) mg/dl Est Cr Clr Drug Dosing ml/min eGFR BUN/Creatinine Ratio (10-20) Glucose (70-99(Fasting)) mg/dl POC Glucose 201 H 280 H 395 H* (70-99) mg/dl Calcium (8.6-10.3) mg/dl Magnesium (1.7-2.4) mg/dl 04/04/24 04/04/24 04/04/24 Range/Units 16:31 16:28 12:38 WBC (4.8-10.8) K/ul RBC (4.20-5.40) M/uL Hgb (12.0-16.0) g/dl Hct (37.0-47.0) % MCV (80.0-100.0) fL MCH (25.0-34.0) pg MCHC (32.0-36.0) g/dL RDW Std Deviation (36.4-46.3) fL RDW Coeff of Teodoro (11.5-14.5) % Plt Count (130-400) K/uL MPV (9.4-12.4) fL Immature Gran % (Auto) % Neut % (Auto) % Lymph % (Auto) % [place] % (Auto) % Eos % (Auto) % Baso % (Auto) % Neut # (Auto) (1.40-6.50) K/uL Lymph # (Auto) (1.20-3.40) K/uL [place] # (Auto) (0.11-0.59) K/uL Eos # (Auto) (0.00-0.50) K/uL Baso # (Auto) (0.00-0.20) K/uL Immature Gran # (Auto) (0.01-0.20) K/uL Sodium (136-145) mmol/L Potassium (3.5-5.1) mmol/L Chloride (98-107) mmol/L Carbon Dioxide (21-32) mmol/L Anion Gap (3-11) BUN (6-23) mg/dl Creatinine (0.6-1.2) mg/dl Est Cr Clr Drug Dosing ml/min eGFR BUN/Creatinine Ratio (10-20) Glucose (70-99(Fasting)) mg/dl POC Glucose 394 H* 355 H* 252 H (70-99) mg/dl Calcium (8.6-10.3) mg/dl Magnesium (1.7-2.4) mg/dl 04/04/24 Range/Units 09:44 WBC (4.8-10.8) K/ul RBC (4.20-5.40) M/uL Hgb (12.0-16.0) g/dl Hct (37.0-47.0) % MCV (80.0-100.0) fL MCH (25.0-34.0) pg MCHC (32.0-36.0) g/dL RDW Std Deviation (36.4-46.3) fL RDW Coeff of Teodoro (11.5-14.5) % Plt Count (130-400) K/uL MPV (9.4-12.4) fL Immature Gran % (Auto) % Neut % (Auto) % Lymph % (Auto) % [place] % (Auto) % Eos % (Auto) % Baso % (Auto) % Neut # (Auto) (1.40-6.50) K/uL Lymph # (Auto) (1.20-3.40) K/uL [place] # (Auto) (0.11-0.59) K/uL Eos # (Auto) (0.00-0.50) K/uL Baso # (Auto) (0.00-0.20) K/uL Immature Gran # (Auto) (0.01-0.20) K/uL Sodium (136-145) mmol/L Potassium (3.5-5.1) mmol/L Chloride (98-107) mmol/L Carbon Dioxide (21-32) mmol/L Anion Gap (3-11) BUN (6-23) mg/dl Creatinine (0.6-1.2) mg/dl Est Cr Clr Drug Dosing ml/min eGFR BUN/Creatinine Ratio (10-20) Glucose (70-99(Fasting)) mg/dl POC Glucose 191 H (70-99) mg/dl Calcium (8.6-10.3) mg/dl Magnesium (1.7-2.4) mg/dl Medications Administered Current Inpatient Medications Acetaminophen (Acetaminophen 500 Mg Tab) 1,000 mg PO Q8H PRN PRN Reason: MILD Pain Scale 1,2,3 & Pre PT Stop: 05/04/24 12:28 Last Admin: 04/04/24 23:40 Dose: 1,000 mg Al Hydrox/Mg Hydrox/Simethicone (Aluminum/Magnesium Susp 30 Ml Udc) 30 ml PO Q6H PRN PRN Reason: Dyspepsia Stop: 05/04/24 12:28 Amlodipine Besylate (Amlodipine Besylate 5 Mg Tab) 5 mg PO QAM [facility] Stop: 05/05/24 08:59 Aspirin (Aspirin 81 Mg Ectab) [facility] [place] Stop: 05/05/24 08:59 Bisacodyl (Bisacodyl 10 Mg Supp) 10 mg TX DAILY PRN PRN Reason: Constipation Stop: 05/04/24 12:28 Dextrose (Dextrose 50% 50 Ml Syringe) 25 - 50 ml IV UD PRN; Protocol PRN Reason: Hypoglycemia Protocol Stop: 05/04/24 15:23 Diphenhydramine HCl (Diphenhydramine Capsule 25 Mg Cap) 25 mg PO Q6H PRN PRN Reason: Allergic Rhinitis/Insomnia Stop: 05/04/24 12:28 Last Admin: 04/04/24 23:40 Dose: 25 mg Famotidine (Famotidine 20 Mg Tab) 20 mg PO Q12H PRN PRN Reason: Dyspepsia Stop: 05/04/24 12:28 Last Admin: 04/04/24 23:40 Dose: 20 mg Glucagon (Glucagon For Inj 1 Mg Vial) 1 mg SQ UD PRN; Protocol PRN Reason: Hypoglycemia Protocol Stop: 05/04/24 15:23 Glucose (Glucose 40% Gel 15 Gm Tube) 15 - 30 gm PO UD PRN; Protocol PRN Reason: Hypoglycemia Protocol Stop: 05/04/24 15:23 Glucose (Glucose 10 Tab/Tube) 4 - 8 tab PO UD PRN; Protocol PRN Reason: Hypoglycemia Protocol Stop: 05/04/24 15:23 Hydrochlorothiazide (Hydrochlorothiazide 25 Mg Tab) [facility] [place] Stop: 05/05/24 08:59 Hydromorphone HCl (Hydromorphone Inj 0.5 Mg/0.5 Ml Syr) 0.5 mg IV Q3H PRN PRN Reason: MODERATE Pain (Scale 4,5,6) & Pre PT Stop: 04/18/24 12:28 Last Admin: 04/04/24 20:37 Dose: 0.5 mg Hydromorphone HCl (Hydromorphone Inj 1 Mg/Ml Syringe) 1 mg IV Q3H PRN PRN Reason: SEVERE Pain (Scale 7,8,9,10) Stop: 04/18/24 12:28 Hydroxyzine HCl (Hydroxyzine Hcl 25 Mg Tab) 25 mg PO Q8H PRN PRN Reason: Anxiety Stop: 05/04/24 12:28 Acetaminophen (Ofirmev) 1,000 mg in 100 mls @ 400 mls/hr IV Q8H PRN PRN Reason: Pain Rating 1-3 & Pre PT Stop: 04/05/24 12:29 Promethazine HCl (Phenergan) 12.5 mg in 50.5 mls @ 202 mls/hr IV Q6H PRN PRN Reason: Nausea And Vomiting Stop: 05/04/24 12:28 Last Infusion: 04/05/24 00:32 Dose: Infused Dexamethasone 6 mg/ Syringe 1.5 mls @ 1 mls/min IV DAILY [facility] Stop: 04/07/24 09:02 Sodium Chloride (Nss) 500 mls @ 50 mls/hr IV .Q10H ONE Stop: 04/05/24 18:02 Influenza Virus Vaccine Quadrival (Do Not Administer Flu Vaccine) 1 each N/A PRN PRN PRN Reason: Notification Stop: 05/04/24 12:28 Insulin Aspart (Insulin Aspart Per Unit Charge) 0 units SC ACHS [facility] Stop: 05/04/24 16:29 Last Admin: 04/04/24 20:37 Dose: 7 units Insulin Glargine (Lantus Per Unit Charge) 20 units SC DAILY [facility] Stop: 05/05/24 08:59 Lisinopril (Lisinopril 40 Mg Tab) 40 mg PO QPM [facility] Stop: 05/04/24 20:59 Lorazepam (Lorazepam 0.5 Mg Tab) 0.5 mg PO Q8H PRN PRN Reason: Sedation/Anxiety Stop: 05/04/24 12:28 Lorazepam (Lorazepam 2 Mg/1 Ml Vial) 0.5 mg IV Q8H PRN PRN Reason: Sedation/Anxiety Stop: 05/04/24 12:28 Magnesium Hydroxide (Magnesium Hydroxide Susp 30 Ml Udc) 30 ml PO Q24H PRN PRN Reason: Constipation Stop: 05/04/24 12:28 Magnesium Oxide (Magnesium Oxide 400 Mg Tab) 400 mg PO BID [facility] Stop: 05/05/24 08:59 Metoclopramide HCl (Metoclopramide Hcl Inj 5 Mg/Ml 2 Ml Vial) 10 mg IV Q6H PRN PRN Reason: Nausea &/or Vomiting Stop: 05/04/24 12:28 Last Admin: 04/04/24 20:58 Dose: 10 mg Miscellaneous (Carbohydrates For Hypoglycemia ) 15 - 30 gm PO UD PRN PRN Reason: Hypoglycemia Protocol Stop: 05/04/24 15:23 Miscellaneous Information (Pharmacy Glycemic Mgmt Consult) 1 each N/A UD PRN; Protocol PRN Reason: Consult Stop: 05/04/24 16:08 Naloxone HCl (Naloxone Hcl 0.4 Mg/1 Ml Vial/Carp) 0.1 mg IV Q5M PRN PRN Reason: Oversedation/Resp depression Stop: 05/04/24 12:28 Ondansetron HCl (Ondansetron Inj 2 Mg/Ml 2 Ml Vial) 4 mg IV Q6H PRN PRN Reason: Nausea &/or Vomiting Stop: 05/04/24 12:28 Last Admin: 04/04/24 19:15 Dose: 4 mg Ondansetron HCl (Ondansetron 4 Mg Od Tab) 4 mg PO Q6H PRN PRN Reason: Nausea Stop: 05/04/24 12:28 Oxycodone HCl (Oxycodone Hcl Ir 5 Mg Tab (Immediate Release)) 5 - 10 mg PO Q4H PRN PRN Reason: Pain & Pre PT Stop: 04/18/24 12:28 Last Admin: 04/05/24 05:47 Dose: 10 mg Pneumococcal Polyvalent Vaccine (Do Not Administer Pneumococcal Vaccine) 1 each N/A PRN PRN PRN Reason: Notification Stop: 05/04/24 12:28 Polyethylene Glycol (Polyethylene (Miralax) 17 Gm Pack) 17 gm PO Q6 [facility] Stop: 05/05/24 05:59 Last Admin: 04/05/24 05:47 Dose: 17 gm Senna/Docusate Sodium (Docusate Sodium/Senna 50/8.6mg Tab) 2 tab PO HS [facility] Stop: 05/04/24 20:59 Last Admin: 04/04/24 19:20 Dose: Not Given Simvastatin (Simvastatin 40 Mg Tab) 40 mg PO QPM [facility] Stop: 05/04/24 20:59 Last Admin: 04/04/24 19:20 Dose: Not Given Sodium Biphosphate/Sodium Phosphate (Sod Phosphate/Sod Biphosphate Enema 132 Ml Btl) 132 ml TX ONE PRN PRN Reason: Constipation Stop: 05/04/24 12:28 Vitamin D (Cholecalciferol 25 Mcg (1000 Units) Tab) 25 mcg PO QAM [facility] Stop: 05/05/24 08:59
--- NOTE | 2024-04-05 08:30 | Orthopedic Progress Note ---
Date of Service April 05, 2024 Assessment & Plan (1) Multilevel lumbosacral spondylosis with radiculopathy: Plan: At this time initiate physical therapy monitor TANVIR operatively discharge home in the next few days. Admission and Anticipated Discharge Date Admission Date: April 04, 2024 Subjective Patient's back pain is controlled leg symptoms markedly improved Physical Exam Physical Exam: Patient is in the chair at the bedside. She is comfortable. Good strength testing. Results & Data Vital Signs (Past 12 Hours) Vital Signs Temp Pulse Resp BP Pulse Ox O2 Del Method 04/05/24 04:15 36.4 C L 71 18 101/63 94 Room Air 04/04/24 23:35 36.7 C 84 16 111/65 93 Room Air
[2024-04-05] MEDS ORDERED: amLODIPine BESYLATE 5 MG TAB PO SCH (09:00)
[2024-04-05] MEDS ORDERED: hydroCHLOROthiazide 25 MG TAB PO SCH (09:00)
[2024-04-05] MEDS ORDERED: BERBERINE CHLORIDE PO SCH (09:00)
[2024-04-05] MEDS: LANTUS PER UNIT CHARGE SC SCH (09:21)
[2024-04-05] MEDS: amLODIPine BESYLATE 5 MG TAB PO SCH (09:23)
[2024-04-05] MEDS: ASPIRIN 81 MG ECTAB PO SCH (09:23)
[2024-04-05] MEDS: CHOLECALCIFEROL 25 MCG (1000 UNITS) TAB PO SCH (09:24)
[2024-04-05] MEDS: MAGNESIUM OXIDE 400 MG TAB PO SCH (09:41)
[2024-04-05] MEDS: dexAMETHasone 6 MG in SYRINGE 0 ML IV SCH (10:01)
[2024-04-05] MEDS: SODIUM CHLORIDE 0.9% 500 ML IV ONE (10:01)
--- NOTE | 2024-04-05 11:59 | Pharmacy Report ---
Pharmacy Glycemic Short Note 2 - Date of Service April 05, 2024 - Glycemic Short BSG Results (Last 24 hours): 04/04/24 04/04/24 04/04/24 12:38 16:28 16:31 Glucose POC Glucose 252 H 355 H* 394 H* 04/04/24 04/04/24 04/04/24 16:33 20:23 23:32 Glucose POC Glucose 395 H* 280 H 201 H 04/05/24 04/05/24 04/05/24 04:14 06:58 07:49 Glucose 210 H POC Glucose 164 H 209 H 04/05/24 11:23 Glucose POC Glucose 164 H OUTPATIENT ANTIDIABETIC REGIMEN: * berberine - nutraceutical ASSESSMENT: * 68 year old s/p surgery, POD 1 - pharmacy consulted for glycemic management. Only listed on nutraceutical supplement outpatient for DM. A1c 7.6% 02/2024. Received total of 49 units of insulin yesterday, of which 18 units were basal to cover steroids. * Fasting BSG >200-continues on IV dexamethasone, will titrate basal to 20 units once daily to cover ongoing steroids. Will continue same CF/CR for now. PLAN FOR INPATIENT GLYCEMIC CONTROL: * Hold outpatient oral diabetes medications * Basal insulin * Lantus - 20 units once daily * Bolus insulin * NovoLog per scale ACHS or Q6hrs while NPO * Goal Range: Low 110 mg/dL - High 140 mg/dL * Correction Factor: 20 mg/dL/unit * Nutritional / Prandial insulin per carb ratio of 1 unit per 7 grams CHO consumed
[2024-04-05 18:55] LABS: BUN Creatinine Ratio 14.6 (10-20); Calcium 8.8 mg/dl (8.6-10.3); Creatinine Clr Calc Pharmacy 42.8 ml/min; Potassium 4.2 mmol/L (3.5-5.1)
[2024-04-05] MEDS: MELATONIN 3 MG TAB PO PRN (20:59)
[2024-04-05] MEDS: SODIUM CHLORIDE 1 GM TABLET PO ONE (20:59)
[2024-04-06 00:50] LABS: BUN Creatinine Ratio 15.6 (10-20); Creatinine Clr Calc Pharmacy 48.3 ml/min; Potassium 4.6 mmol/L (3.5-5.1)
[2024-04-06 07:04] LABS: Hematocrit (blood only) 30.9 % (37.0-47.0); Hemoglobin 10.6 g/dl (12.0-16.0); Mean Corpuscular Hemoglobin 32.5 pg (25.0-34.0); Mean Corpuscular Hgb Conc 34.3 g/dL (32.0-36.0); Mean Corpuscular Volume 94.8 fL (80.0-100.0); Mean Platelet Volume 9.2 fL (9.4-12.4); Platelet Count 228 K/uL (130-400); RDW Coefficient of Variation 12.4 % (11.5-14.5); RDW Standard Deviation 43.2 fL (36.4-46.3); Red Blood Count 3.26 M/uL (4.20-5.40); White Blood Count 7.84 K/ul (4.8-10.8)
[2024-04-06 07:17] LABS: BUN Creatinine Ratio 15.2 (10-20); Calcium 8.8 mg/dl (8.6-10.3); Creatinine Clr Calc Pharmacy 50.1 ml/min; Magnesium 1.8 mg/dl (1.7-2.4); Phosphorus 3.6 mg/dl (2.5-4.9); Potassium 4.5 mmol/L (3.5-5.1)
[2024-04-06 07:29] VITALS: TEMP 97.5
--- NOTE | 2024-04-06 08:00 | Hospitalist Progress Note ---
Date of Service April 06, 2024 Assessment & Plan (1) GERD (gastroesophageal reflux disease): (2) HTN (hypertension): (3) Diabetes mellitus, type II: (4) DDD (degenerative disc disease), lumbar: (5) Migraines: (6) Multilevel lumbosacral spondylosis with radiculopathy: Plan Assessment and plan: DDD S/p lumbar decompression/fusion 04/04: Pain control/DVT prophylaxis/PT/OT per surgeon --S/P lumbar decompression, fusion surgery by Dr. Young Monitor for postop anemia Bowel regimen to prevent constipation Wound care, activity, DVT prophylaxis per primary team PT OT when appropriate Acute blood loss anemia, post-op, vs dilutional post -op Hgb 11.4 , preop 12.6 current Hgb 10.6 expected, no need for blood transfusion - cont. to monitor Hyponatremia, ALIE Na 129 (04/05) Cr 1.38 (04/05) Na 136 in February, however low Na 128 noted back in 2017 Cr 1 in February, however Cr 1.5 back in 2017 gave NS IVF, hold HCTZ, closely monitor , re-check PM 125 -> gave 1g of NaCl -> Na 131 at midnight -> this AM Na 132 encourage oral intake - cont. to hold HCTZ, lisinopril on DC - follow up w/ PCP - pt understands and is in agreement HTN: on amlodipine/HCTZ/lisinopril at home - hold HCTZ and lisinopril - monitor BP, current BP 107/71 -> pt advised to monitor BP at home HLD: Continue statin DM2: Last A1c 7.11 February 2024 Was on metformin prior, now taking berberine chloride SSI while inpatient Full code DVT prophylaxis: Per primary team Admission and Anticipated Discharge Date Admission Date: April 04, 2024 Subjective Pt seen in follow up of med consult , s/p spinal surgery Sitting up in bed in NAD no fever, chills, chest pain, shortness of breath, no abd. pain, n/v Feeling well this AM and tells me she will be discharged today. Discussed low sodium level, and to hold HCTZ, lisinopril, and follow up w/ PCP - pt understands and is in agreement with the plan Review of Systems Review of Systems: All systems reviewed & are unremarkable except as noted in Subjective Physical Exam Physical Exam: General Appearance: Obese, no apparent distress Head: normocephalic, Atraumatic Eyes: normal inspection, EOMI Neck: supple Respiratory/Chest: Normal breath sounds, CTA, No accessory muscle use Cardiovascular: S1, S2, No murmur Abdomen/GI: Soft, Non tender, Bowel sounds present Back: Surgical site in dressing Extremities/Musculoskeletal:normal inspection, no edema Neurologic/Psych:AAOX3, grossly no focal neurological deficits Skin: normal color, warm Results & Data Results & Data Vital Signs (Past 12 Hours) Vital Signs Temp Pulse Pulse Resp BP Pulse Ox O2 Del Method 04/06/24 07:27 36.4 C L 64 16 107/71 94 Room Air 04/05/24 20:55 Room Air 04/05/24 19:57 36.5 C 76 18 111/69 95 Room Air Laboratory Results 04/06/24 04/06/24 04/05/24 Range/Units 06:35 00:26 20:38 WBC 7.84 (4.8-10.8) K/ul RBC 3.26 L (4.20-5.40) M/uL Hgb 10.6 L (12.0-16.0) g/dl Hct 30.9 L (37.0-47.0) % MCV 94.8 (80.0-100.0) fL MCH 32.5 (25.0-34.0) pg MCHC 34.3 (32.0-36.0) g/dL RDW Std Deviation 43.2 (36.4-46.3) fL RDW Coeff of Teodoro 12.4 (11.5-14.5) % Plt Count 228 (130-400) K/uL MPV 9.2 L (9.4-12.4) fL Sodium 132 L 131 L (136-145) mmol/L Potassium 4.5 4.6 (3.5-5.1) mmol/L Chloride 97 L 94 L (98-107) mmol/L Carbon Dioxide 28 28 (21-32) mmol/L Anion Gap 7 9 (3-11) BUN 16 17 (6-23) mg/dl Creatinine 1.05 1.09 (0.6-1.2) mg/dl Est Cr Clr Drug Dosing 50.1 48.3 ml/min eGFR 58.60 56.03 BUN/Creatinine Ratio 15.2 15.6 (10-20) Glucose 139 H 141 H (70-99(Fasting)) mg/dl POC Glucose 185 H (70-99) mg/dl Calcium 8.8 9.0 (8.6-10.3) mg/dl Phosphorus 3.6 (2.5-4.9) mg/dl Magnesium 1.8 (1.7-2.4) mg/dl 04/05/24 04/05/24 04/05/24 Range/Units 17:43 16:40 11:23 WBC (4.8-10.8) K/ul RBC (4.20-5.40) M/uL Hgb (12.0-16.0) g/dl Hct (37.0-47.0) % MCV (80.0-100.0) fL MCH (25.0-34.0) pg MCHC (32.0-36.0) g/dL RDW Std Deviation (36.4-46.3) fL RDW Coeff of Teodoro (11.5-14.5) % Plt Count (130-400) K/uL MPV (9.4-12.4) fL Sodium 125 L (136-145) mmol/L Potassium 4.2 (3.5-5.1) mmol/L Chloride 91 L (98-107) mmol/L Carbon Dioxide 26 (21-32) mmol/L Anion Gap 8 (3-11) BUN 18 (6-23) mg/dl Creatinine 1.23 H (0.6-1.2) mg/dl Est Cr Clr Drug Dosing 42.8 ml/min eGFR 48.47 BUN/Creatinine Ratio 14.6 (10-20) Glucose 262 H (70-99(Fasting)) mg/dl POC Glucose 249 H 164 H (70-99) mg/dl Calcium 8.8 (8.6-10.3) mg/dl Phosphorus (2.5-4.9) mg/dl Magnesium (1.7-2.4) mg/dl Medications Administered Current Inpatient Medications Acetaminophen (Acetaminophen 500 Mg Tab) 1,000 mg PO Q8H PRN PRN Reason: MILD Pain Scale 1,2,3 & Pre PT Stop: 05/04/24 12:28 Last Admin: 04/06/24 06:05 Dose: 1,000 mg Al Hydrox/Mg Hydrox/Simethicone (Aluminum/Magnesium Susp 30 Ml Udc) 30 ml PO Q6H PRN PRN Reason: Dyspepsia Stop: 05/04/24 12:28 Amlodipine Besylate ([facility]odipine Besylate 5 Mg Tab) [facility] [place]: 05/05/24 08:59 Last Admin: 04/05/24 09:23 Dose: 5 mg Aspirin (Aspirin 81 Mg Ectab) 81 mg PO [facility] Stop: 05/05/24 08:59 Last Admin: 04/05/24 09:23 Dose: 81 mg Bisacodyl (Bisacodyl 10 Mg Supp) 10 mg MI DAILY PRN PRN Reason: Constipation Stop: 05/04/24 12:28 Dextrose (Dextrose 50% 50 Ml Syringe) 25 - 50 ml IV UD PRN; Protocol PRN Reason: Hypoglycemia Protocol Stop: 05/04/24 15:23 Diphenhydramine HCl (Diphenhydramine Capsule 25 Mg Cap) 25 mg PO Q6H PRN PRN Reason: Allergic Rhinitis/Insomnia Stop: 05/04/24 12:28 Last Admin: 04/04/24 23:40 Dose: 25 mg Famotidine (Famotidine 20 Mg Tab) 20 mg PO Q12H PRN PRN Reason: Dyspepsia Stop: 05/04/24 12:28 Last Admin: 04/04/24 23:40 Dose: 20 mg Glucagon (Glucagon For Inj 1 Mg Vial) 1 mg SQ UD PRN; Protocol PRN Reason: Hypoglycemia Protocol Stop: 05/04/24 15:23 Glucose (Glucose 40% Gel 15 Gm Tube) 15 - 30 gm PO UD PRN; Protocol PRN Reason: Hypoglycemia Protocol Stop: 05/04/24 15:23 Glucose (Glucose 10 Tab/Tube) 4 - 8 tab PO UD PRN; Protocol PRN Reason: Hypoglycemia Protocol Stop: 05/04/24 15:23 Hydrochlorothiazide (Hydrochlorothiazide 25 Mg Tab) 12.5 mg PO [facility] Stop: 05/05/24 08:59 Hydromorphone HCl (Hydromorphone Inj 0.5 Mg/0.5 Ml Syr) 0.5 mg IV Q3H PRN PRN Reason: MODERATE Pain (Scale 4,5,6) & Pre PT Stop: 04/18/24 12:28 Last Admin: 04/04/24 20:37 Dose: 0.5 mg Hydromorphone HCl (Hydromorphone Inj 1 Mg/Ml Syringe) 1 mg IV Q3H PRN PRN Reason: SEVERE Pain (Scale 7,8,9,10) Stop: 04/18/24 12:28 Hydroxyzine HCl (Hydroxyzine Hcl 25 Mg Tab) 25 mg PO Q8H PRN PRN Reason: Anxiety Stop: 05/04/24 12:28 Promethazine HCl (Phenergan) 12.5 mg in 50.5 mls @ 202 mls/hr IV Q6H PRN PRN Reason: Nausea And Vomiting Stop: 05/04/24 12:28 Last Infusion: 04/05/24 00:32 Dose: Infused Dexamethasone 6 mg/ Syringe 1.5 mls @ 1 mls/min IV DAILY [facility] Stop: 04/07/24 09:02 Last Admin: 04/05/24 10:01 Dose: 1 mls/min Influenza Virus Vaccine Quadrival (Do Not Administer Flu Vaccine) 1 each N/A PRN PRN PRN Reason: Notification Stop: 05/04/24 12:28 Insulin Aspart (Insulin Aspart Per Unit Charge) 0 units SC ACHS [facility] Stop: 05/04/24 16:29 Last Admin: 04/05/24 21:00 Dose: 3 units Insulin Glargine (Lantus Per Unit Charge) 20 units SC DAILY [facility] Stop: 05/05/24 08:59 Last Admin: 04/05/24 09:21 Dose: 20 units Lisinopril (Lisinopril 40 Mg Tab) 40 mg PO QPM [facility] Stop: 05/04/24 20:59 Lorazepam (Lorazepam 0.5 Mg Tab) 0.5 mg PO Q8H PRN PRN Reason: Sedation/Anxiety Stop: 05/04/24 12:28 Lorazepam (Lorazepam 2 Mg/1 Ml Vial) 0.5 mg IV Q8H PRN PRN Reason: Sedation/Anxiety Stop: 05/04/24 12:28 Magnesium Hydroxide (Magnesium Hydroxide Susp 30 Ml Udc) 30 ml PO Q24H PRN PRN Reason: Constipation Stop: 05/04/24 12:28 Magnesium Oxide (Magnesium Oxide 400 Mg Tab) 400 mg PO BID [facility] Stop: 05/05/24 08:59 Last Admin: 04/05/24 21:00 Dose: 400 mg Melatonin (Melatonin 3 Mg Tab) 3 mg PO HS PRN PRN Reason: Sleep Stop: 05/05/24 19:55 Last Admin: 04/05/24 20:59 Dose: 3 mg Metoclopramide HCl (Metoclopramide Hcl Inj 5 Mg/Ml 2 Ml Vial) 10 mg IV Q6H PRN PRN Reason: Nausea &/or Vomiting Stop: 05/04/24 12:28 Last Admin: 04/04/24 20:58 Dose: 10 mg Miscellaneous (Carbohydrates For Hypoglycemia ) 15 - 30 gm PO UD PRN PRN Reason: Hypoglycemia Protocol Stop: 05/04/24 15:23 Miscellaneous Information (Pharmacy Glycemic Mgmt Consult) 1 each N/A UD PRN; Protocol PRN Reason: Consult Stop: 05/04/24 16:08 Naloxone HCl (Naloxone Hcl 0.4 Mg/1 Ml Vial/Carp) 0.1 mg IV Q5M PRN PRN Reason: Oversedation/Resp depression Stop: 05/04/24 12:28 Ondansetron HCl (Ondansetron Inj 2 Mg/Ml 2 Ml Vial) 4 mg IV Q6H PRN PRN Reason: Nausea &/or Vomiting Stop: 05/04/24 12:28 Last Admin: 04/04/24 19:15 Dose: 4 mg Ondansetron HCl (Ondansetron 4 Mg Od Tab) 4 mg PO Q6H PRN PRN Reason: Nausea Stop: 05/04/24 12:28 Oxycodone HCl (Oxycodone Hcl Ir 5 Mg Tab (Immediate Release)) 5 - 10 mg PO Q4H PRN PRN Reason: Pain & Pre PT Stop: 04/18/24 12:28 Last Admin: 04/06/24 06:05 Dose: 5 mg Pneumococcal Polyvalent Vaccine (Do Not Administer Pneumococcal Vaccine) 1 each N/A PRN PRN PRN Reason: Notification Stop: 05/04/24 12:28 Polyethylene Glycol (Polyethylene (Miralax) 17 Gm Pack) 17 gm PO Q6 [facility] Stop: 05/05/24 05:59 Last Admin: 04/06/24 06:05 Dose: 17 gm Senna/Docusate Sodium (Docusate Sodium/Senna 50/8.6mg Tab) 2 tab PO HS [facility] Stop: 05/04/24 20:59 Last Admin: 04/05/24 20:59 Dose: 2 tab Simvastatin (Simvastatin 40 Mg Tab) 40 mg PO QPM [facility] Stop: 05/04/24 20:59 Last Admin: 04/05/24 21:01 Dose: 40 mg Sodium Biphosphate/Sodium Phosphate (Sod Phosphate/Sod Biphosphate Enema 132 Ml Btl) 132 ml MI ONE PRN PRN Reason: Constipation Stop: 05/04/24 12:28 Vitamin D (Cholecalciferol 25 Mcg (1000 Units) Tab) 25 mcg PO QAM [facility] Stop: 05/05/24 08:59 Last Admin: 04/05/24 09:24 Dose: 25 mcg
--- NOTE | 2024-04-06 09:50 | Discharge Summary ---
Date of Service April 06, 2024 Admission HPI Per Admitting Provider This is a 68-year-old female presents with chronic persistent back and leg pain and failing course of nonoperative care is here for surgical intervention. Principal Diagnosis Lumbar spondylosis with radiculopathy Discharge Data Allergies Allergy/AdvReac Type Severity Reaction Status Date / Time adhesive AdvReac Mild Skin Verified 04/04/24 06:28 irritation, "skin rips off" with some tape tramadol AdvReac Mild Nausea Verified 04/04/24 06:28 prednisone AdvReac Unknown "Family Verified 04/04/24 06:28 allergic" (patient unsure if allergic) Consultations 04/04/24 12:29 Consult Hospitalist Routine Procedures Performed Operation Date: 04/04/24 07:45 Actual Procedures p L3-L4 Decompression and Fusion, Spinal Cord Monitoring(Not Applicable) - Lonnie Young DO s L4-L5 Removal Hardware,(Not Applicable) - Lonnie Young DO Ordered Studies 04/04/24 07:45 FL lumbar spine 2-3V Routine Hospital Course (1) Multilevel lumbosacral spondylosis with radiculopathy: Patient underwent lumbar decompression fusion trial as well as taken orthopedic for postoperative. Postop lease progressed appropriate. Marked improvement of her leg symptoms. TANVIR drain decreasing. Excellent strength testing. Subsidy discharged home. Discharge orders instructions from the chart for further review. Total Time Total Time Spent Total Time Spent (In Minutes): 20 minutes Discharge Plan Discharge Items Patient Disposition: Home - Self-Care Reason For Visit: Lumbar Region Spinal Stenosis with Radiculopathy, Discharge Diagnosis: Lumbar spondylosis with radiculopathy Activity: As commented below Non-emergency contact: Primary Care Provider Call non-emergency contact if: you have any medication questions Follow-up/Referrals: Baylee Miles PA-C [Primary Care Provider] - Diet: Regular Addtl Attending Provider Instructions: ACTIVITY RECOMMENDATIONS: SELF CARE INSTRUCTIONS AFTER THORACIC/LUMBAR FUSIONS 1. You may walk to your tolerance. It is good exercise for your legs and back. Expect some back and intermittent leg aches and pains. 2. You may perform "counter-top" level activities (make a sandwich, josep with a project, etc.). 3. No bending or lifting of more than 10 pounds or back twisting of any nature (roll like a log when turning in bed). 4. You may ride in a car for 20-30 minutes at a time. No driving until after your first visit with your doctor. 5. Frequent changes of position and restricting sitting to 30 minutes at a time will help limit the amount of back spasms and stiffness you may experience. 6. You may discontinue the use of ambulatory aids (cane, crutches, etc.) once your strength and confidence allow. 7. 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 Do not take a tub bath, sit in a hot tub or go into a swimming pool until after your first recheck in the office. 8. You may resume previous diet. SPECIAL CARE INSTRUCTIONS: VERY IMPORTANT TO READ AND REVIEW A. Your surgical incision has been closed with a cosmetic suture under the skin that will dissolve in about 6 weeks. In 14 days, you can use a pair of clean scissors and cut the suture that is left outside of the skin at the ends of your incision. 1. The small skin tapes can be removed 7 days after surgery if they have not fallen off by that point. 2. You may keep the wound open to air as much as possible to promote healing after post-op day number 5 unless told otherwise by your doctor. 3. If you think the wound looks like it is becoming infected (redness or worsening drainage) and/or you are experiencing fever, chill or worsening back pain and muscle spasms, contact the office so that we may evaluate you as soon as possible. B. Complications are uncommon, but please contact us if you have any signs or symptoms of: 1. wound infection (fever higher than 102.5 degrees F, redness, separation of wound, drainage, or increasing pain from the incision) 2. blood clots in legs (pain, swelling, redness and warmth in legs) 3. urinary tract infection (fever higher than 102.5 degrees F, burning upon urination or increased frequency of urination) 4. nerve problems (inability to walk on your toes or heels, numbness, loss of bowel or bladder control) 5. any other symptoms that concern you C. Please call the office at if you have any concerns or questions about your operation or recovery. D. No smoking! Smoking drastically decreases the chance of a solid fusion. E. Do not take any anti-inflammatory medications (Indocin, Advil, Motrin, Aspirin, Naprosyn, etc.) as these may inhibit the chance of a solid fusion. Tylenol is okay to take for pain. MANAGING PAIN AFTER SPINAL SURGERY 1. Narcotic medication is intended for short-term use and will be provided for surgical pain. Surgical pain usually lasts for a period of 4-6 weeks. Narcotic medication includes Percocet, Vicodin, Darvocet, Tylenol #3 or Lortab. 2. Longer-term pain is more appropriately treated with non-narcotic medication such as Tylenol ES. 3. Muscle spasm is not appropriately treated with narcotics. Muscle relaxers such as Soma, Flexeril or Skelaxin can be used along with Tylenol ES. 4. Remember that we all live with some "aches and pains". This is not unusual or uncommon after an injury or as we get older. a. Back pain is expected and may include muscle spasms for 4 to 6 weeks after surgery. The pain should gradually improve. If the pain worsens for no apparent reason, please contact the office. b. Intermittent leg pain may also be experienced and should not be concerned about unless it worsens for no apparent reason. If so, please contact the office. 5. We will provide appropriate medication within the normal guidelines of their prescribed use. We will also be very cautious and aware of potential abuse and extended duration of patients' medication needs. a. Pain medications are for your comfort and to assist with sleep and rest so that the tissue can heal. They are not provided in order to return to normal activity and should not be used through the day. To do so or worsening pain at night can result from ongoing tissue damage and development of tolerance to the prescribed medicine. 6. Please allow 2-3 days to process refills. Prescriptions will not be mailed but must be picked up at the office. FOLLOW UP VISIT: Keep your scheduled follow-up appointment. Any questions, please call the office at . Pending Studies at Discharge: No Stand-Alone Forms: [employer] Smoking Cessation Medications and DC Order Prescriptions: New oxycodone 5 mg tablet 5 mg PO Q6H PRN (Reason: pain) Qty: 30 0RF Continued aspirin [Aspir-Low] 81 mg Tablet,Delayed Release (Dr/Ec) 81 mg PO QAM simvastatin 40 mg tablet 40 mg PO QPM lisinopril 40 mg tablet 40 mg PO QPM loratadine [Claritin] 10 mg Tablet 10 mg PO DAILY PRN (Reason: allergies) amlodipine 5 mg Tablet 5 mg PO QAM hydrochlorothiazide 12.5 mg Capsule 12.5 mg PO QAM gabapentin 300 mg Capsule 300 - 600 mg PO TID PRN (Reason: Pain) cholecalciferol (vitamin D3) [Vitamin D3] 10 mcg (400 unit) Tablet,Chewable 20 mcg PO QAM berberine chloride 1 tab PO DAILY Discharge Orders: Discharge Order (Routine); Ordered 04/06/24 Ordered By: Lonnie Young Admission Data Admit Date/Time: 04/04/24 09:26 Attending Provider: Lonnie Young Admit Provider: Lonnie Young Primary Care Provider: Baylee Miles Other Providers: Kendrick Hou
[2024-04-06 11:19] VITALS: BP 114/76; PULSE 70; RESP 18; O2SAT 96
== END 2024-04-06 12:27 | disposition home or self-care (01) | DRG 402 ==
LOC: ASU 06:08 → 3W 09:26